=== PATIENT | male | born 1945 | race Hispanic/Latino ===

== ENCOUNTER 2018-09-25 18:48 | Inpatient (IN) | payer MEDICARE ==
[2018-09-25 20:12] LABS: #Monocytes 1.4 thou/uL (0.11-0.59); #Neutrophils 10.7 thou/uL (1.40-6.50); %Basophils 0.2 % (0.0-1.0); %Eosinophils 0.1 % (0.0-10.0); %Lymphocytes 7.4 % (21.0-51.0); %Monocytes 10.8 % (0.0-10.0); %Neutrophils 81.6 % (42.0-75.0); Hemoglobin 12.7 g/dL (14.0-18.0); Mean Corpuscular HGB CONC 33.7 g/dL (32.0-36.0); Mean Corpuscular Hemoglobin 33.7 pg (27.0-31.0); Platelet Count 154 thou/uL (130-400); RBC Distribution Width 12.5 % (11.5-14.5); Red Blood Cell (RBC) Count 3.76 mill/uL (4.70-6.10); White Blood Cell (WBC) Count 13.1 thou/uL (4.8-10.8)
[2018-09-25 20:33] LABS: ALT (SGPT) 13 U/L (8-55); AST (SGOT) 18 U/L (5-34); Albumin 3.7 g/dL (3.4-4.8); Alkaline Phosphatase 80 U/L (40-150); Anion Gap 18 mmol/L (10-20); BUN (Urea Nitrogen) 43 mg/dL (8.4-25.7); Bilirubin, Total 0.8 mg/dL (0.2-1.2); Calc. Creatinine Clearance 0 mL/min (70-130); Calcium 10.3 mg/dL (7.8-10.44); Carbon Dioxide 21 mmol/L (23-31); Chloride 97 mmol/L (98-107); Estimated GFR-MDRD 7; Globulin 4.7 g/dL (2.4-3.5); Potassium 4.6 mmol/L (3.5-5.1); Protein, Total 8.4 g/dL (5.8-8.1); Sodium 131 mmol/L (136-145)
[2018-09-25 20:37] LABS: Glucose 58 mg/dL (83-110)
[2018-09-25] MEDS ORDERED: Acetaminophen 500 MG TAB ONE (20:53)
--- NOTE | 2018-09-25 20:53 | RAD ---
Portable frontal chest radiograph: 09/25/2018 COMPARISON: 04/21/2018 HISTORY: Cough FINDINGS: Stable prominence of the cardiac silhouette. Diffuse mild increased linear interstitial den sity noted, a stable finding. There is subtle hazy increased density in the left base lateral to the left heart border, new. This could signify infectious pneumonitis in the proper clinical setting. This could also be associated with volume loss. IMPRESSION: Hazy increased density in the left base lateral to the left heart border may signify infe ctious pneumonitis in the proper clinical setting. Recommend follow-up imaging following treatment to document resolution.
[2018-09-25 20:54] LABS: CKMB 2.3 ng/mL (0-6.6)
[2018-09-25] MEDS ORDERED: Dextrose 50% Abboject 50 ML SYRINGE ONE (20:55)
[2018-09-25] MEDS ORDERED: HYDROcodone/Acetaminophen 5/325 mg Tablet ONE (21:29)
[2018-09-25] MEDS ORDERED: Piperacillin/Tazobactam 3.375 GM VIAL ONE ×2 (21:33→22:02)
[2018-09-25] MEDS ORDERED: Calcium Carbonate 500 MG ChewTAB PO PRN (21:37)
[2018-09-25] MEDS ORDERED: Nitroglycerin 0.4 MG TAB (25 Tab Bottle) SL PRN (21:37)
[2018-09-25] MEDS ORDERED: cloNIDine 0.1 MG TAB PO PRN (21:37)
[2018-09-25] MEDS ORDERED: Dextrose 50% Abboject 50 ML SYRINGE SLOW IVP PRN (21:37)
[2018-09-25] MEDS ORDERED: hydrALAZINE 20 MG/ML VIAL SLOW IVP PRN (21:37)
[2018-09-25] MEDS ORDERED: Dextrose 5% in Water 1,000 ML IV PRN (21:37)
[2018-09-25] MEDS ORDERED: Ondansetron ODT 4 MG TAB PO PRN (21:37)
[2018-09-25] MEDS ORDERED: Diabetic Tussin 200 MG/10 ML UDCUP PO PRN (21:37)
[2018-09-25] MEDS ORDERED: HumaLOG 300 UNITS/3 ML VIAL SC PRN ×2 (21:37)
[2018-09-25] MEDS ORDERED: Benzonatate 100 MG CAP PO PRN (21:37)
[2018-09-25] MEDS ORDERED: Ondansetron PF 4 MG/2 ML Vial IVP PRN (21:37)
[2018-09-25] MEDS ORDERED: Senokot S 8.6-50 MG TAB PO PRN ×2 (21:37)
[2018-09-25] MEDS ORDERED: Sodium Chloride 0.9% 1,000 ML IV SCH (21:45)
[2018-09-26 00:18] LABS: Troponin I 0.066 ng/mL (< 0.028)
[2018-09-26] MEDS ORDERED: Lidocaine 5% Patch TD SCH (01:30)
[2018-09-26] MEDS ORDERED: Meclizine HCl 25 MG TAB PO PRN (01:48)
[2018-09-26] MEDS: Acetaminophen 325 MG TAB PO PRN ×3 (01:59→15:34)
[2018-09-26 02:14] VITALS: BMI 42.3
--- NOTE | 2018-09-26 02:29 | HP ---
The patient was seen prior to midnight. PRIMARY CARE PHYSICIAN: Missy Frazier MD. CHIEF COMPLAINT: Weakness and fall. HISTORY OF PRESENTING ILLNESS: Mr. Cao is a 73-year-old male with past medical history of end-stage renal disease, on dialysis Thursday, Thursday, and Thursday, as well as history of diabetes, hypertension, dyslipidemia, who presented to the ER with the above-mentioned complaint. History is mainly obtained by the patient himself who is somewhat of a poor historian. The history is supplemented by his family members including his son at bedside. According to Mr. Cao, he has been feeling unwell for the last few days. He has been getting more and more weak and has noticed poor appetite. Denies any fever or chills, but has been having some cough. He uses a wheelchair at home, but it has been getting harder for him to move around. Today, he fell trying to get out of the wheelchair to bed. He has also missed dialysis today because of extreme weakness. He also notices that he has not been able to make it to the bathroom in time because of the weakness and is urinating on himself. Denies any painful micturition or any blood in the urine. He denies any nausea, vomiting, abdominal pain, or diarrhea. He also has noticed some increased swelling in his legs. Upon presentation to the emergency room, he was febrile with a temperature of 103.1 and blood pressure of 142/66. He was tachycardic with a heart rate of 102. He was given initial workup, which revealed leukocytosis with WBCs of 13.1 with 81% neutrophils. His serum chemistries show worsening renal function with BUN of 43, creatinine of 7.65, and his blood sugar was low at 58. His lactic acid was normal. His liver enzymes normal. His chest x-ray was consistent with left lower lobe pneumonia. He was given broad-spectrum IV antibiotics in the emergency room and is now being admitted to medical floor for pneumonia. At the time of my evaluation, the patient is comfortably sitting in bed and eating dinner. He is in no acute distress. His most recent vital signs include blood pressure of 115/64 with a pulse of 95, saturating 98% on 2 L nasal cannula. PAST MEDICAL HISTORY: 1. Renal disease, on hemodialysis Thursday, Thursday, Thursday. The patient follows up with Dr. Hernandez. 2. Hypertension. 3. Dyslipidemia. 4. Diabetes mellitus. PAST SURGICAL HISTORY: Knee surgery and ankle surgery. PSYCHIATRIC HISTORY: No anxiety. No depression. SOCIAL HISTORY: He lives at home and there is no history of tobacco, alcohol, or drug abuse. FAMILY HISTORY: No family history of premature coronary artery disease, stroke, or cancer. ALLERGIES: NO KNOWN MEDICATION ALLERGIES. CURRENT MEDICATIONS: Listed as following; 1. Amlodipine 10 mg daily. 2. Aspirin 325 mg daily. 3. Crestor 20 mg daily. 4. Hydrocodone with Tylenol as needed. 5. Imdur 30 mg daily. 6. Lisinopril 10 mg daily. 7. Allopurinol 100 mg daily. 8. Levothyroxine 125 mcg daily. 9. Glimepiride 4 mg in the morning and one tablet at night. REVIEW OF SYSTEMS: A 14-point review of system is done, it is negative except for those mentioned in the history and physical. CODE STATUS: Do not resuscitate or intubate. Discussed with the patient. LABORATORY EXAMINATION: CBC shows WBCs at 13.1 with 81% neutrophils, hemoglobin 12.7, cell count normal. Serum chemistry shows sodium of 131, chloride 97, bicarb 21, BUN 43, creatinine 7.65, blood sugar 58 with repeat blood sugar of 123. Troponin 0.052, then 0.066 with normal CK-MB. Chest x-ray by my review shows left lower lobe infiltrates. PHYSICAL EXAMINATION: VITAL SIGNS: Most recent vital signs; temperature 99.5, pulse of 85, respirations 14, saturating 98% on 2 L nasal cannula, blood pressure 101/56. GENERAL: He is diaphoretic, but in no acute distress. He is awake, alert, and oriented x3. HEENT: Mucous membrane is slightly dry. No oropharyngeal exudate or erythema. Head is normocephalic and atraumatic. Pupils are equal and reactive to light and accommodation. Extraocular movement intact. NECK: Supple without any lymphadenopathy, JVD, or bruit. CHEST: Evaluation shows some diffuse coarse rhonchi bilaterally without any wheezing or crackles. HEART: Rate and rhythm is regular without any murmurs, rubs, or gallops. ABDOMEN: Soft, nontender, nondistended with positive bowel sounds. EXTREMITIES: Free of any cyanosis, clubbing, or edema. NEUROLOGICAL: Examination is nonfocal. SKIN: Free of any rashes or bruises. Feels warm and dry to touch. PSYCHIATRIC: Normal affect. IMPRESSION AND PLAN: 1. Healthcare-associated pneumonia. The patient is a dialysis patient and at high risk for resistant organisms. We will cover him for Pseudomonas and MRSA among others. He will be started on vancomycin with pharmacy to dose and monitor based on his renal function as well as cefepime. We will start him on gentle IV fluids and monitor the results of his blood cultures that were obtained in the emergency room. Currently, he is hemodynamically stable without evidence of sepsis. 2. Elevated cardiac enzymes, most likely demand ischemia from infection. We will continue to trend serial cardiac enzymes. 3. Acute on chronic kidney insufficiency. The patient has missed dialysis today. We will consult his parking enforcement specialist, Dr. Hernandez for dialysis in the morning. Avoid any nephrotoxic medications. We will hold the lisinopril for now. 4. End-stage renal disease, on hemodialysis. We will continue maintenance hemodialysis in the hospital. 5. History of hypertension. Resume home medications with parameters to hold for low blood pressure. We will restart amlodipine as well as Imdur, but hold the lisinopril given that he has acute renal insufficiency on top of chronic kidney disease for now. 6. Diabetes mellitus. His blood sugar was on the lower side upon presentation, probably because of the infection. We will hold his oral hypoglycemics for now and treat with insulin sliding scale with Accu-Cheks a.c. and at bedtime. 7. Deep venous thrombosis and gastrointestinal prophylaxis will be added. 8. Code status is do not intubate or resuscitate. Discussed with the patient in detail. DISPOSITION: Mr. Cao is currently being admitted to medical floor for healthcare-associated pneumonia. He is hemodynamically stable. Estimated length of stay at this time is at least 2 to 3 midnights. Further management will depend upon his clinical course. Job ID: [id number]
[2018-09-26 02:38] LABS: #Lymphocytes 1.3 thou/uL (1.20-3.40); #Monocytes 1.5 thou/uL (0.11-0.59); #Neutrophils 8.8 thou/uL (1.40-6.50); %Basophils 0.4 % (0.0-1.0); %Eosinophils 0.1 % (0.0-10.0); %Lymphocytes 11.3 % (21.0-51.0); %Monocytes 12.9 % (0.0-10.0); %Neutrophils 75.3 % (42.0-75.0); Hemoglobin 11.8 g/dL (14.0-18.0); Mean Corpuscular HGB CONC 33.1 g/dL (32.0-36.0); Mean Corpuscular Hemoglobin 33.3 pg (27.0-31.0); Platelet Count 136 thou/uL (130-400); RBC Distribution Width 12.6 % (11.5-14.5); Red Blood Cell (RBC) Count 3.56 mill/uL (4.70-6.10); White Blood Cell (WBC) Count 11.7 thou/uL (4.8-10.8)
[2018-09-26 02:49] LABS: Bilirubin Negative (Negative); Blood, Urine Moderate (Negative); Clarity CLEAR (Clear); Glucose, Urine (Dipstick) 250 mg/dL (Negative); Leukocyte Negative (Negative); Nitrite Negative (Negative); Protein, Urine (Dipstick) 100 mg/dL (Neg-Trace); Specific Gravity, Urine 1.011 (1.002-1.036); pH, Urine 7.5 (5.0-9.0)
[2018-09-26 02:51] LABS: Bacteria/HPF None Seen HPF (None Seen); Hyaline Casts/LPF 0-3 HYALINE CAST LPF (0-3 Hyaline); Pathc Cast-AUWi Flag 0.27 (0-2.49); Squamous Epithelial 0-3 HPF (0-3); WBC/HPF 0-3 HPF (0-3)
[2018-09-26 02:52] LABS: Urine Culture Reflex No No
[2018-09-26 03:01] LABS: Chloride 99 mmol/L (98-107); Potassium 4.4 mmol/L (3.5-5.1); Sodium 131 mmol/L (136-145)
[2018-09-26 03:02] LABS: Glucose 119 mg/dL (83-110)
[2018-09-26 03:02] LABS: Troponin I 0.052 ng/mL (< 0.028)
[2018-09-26 03:03] LABS: Anion Gap 18 mmol/L (10-20); Carbon Dioxide 18 mmol/L (23-31)
[2018-09-26 03:05] LABS: Calc. Creatinine Clearance 14 mL/min (70-130); Estimated GFR-MDRD 7
[2018-09-26 03:06] LABS: BUN (Urea Nitrogen) 49 mg/dL (8.4-25.7)
[2018-09-26] MEDS ORDERED: Vancomycin Sliding Scale 1 EACH FS ONE (03:45)
[2018-09-26] MEDS ORDERED: HOLD VANCOMYCIN FOR LEVEL >20 FS SCH (03:45)
[2018-09-26] MEDS ORDERED: Vancomycin HCl 750 MG in Sodium Chloride 0.9% 250 ML 250 ML IVPB SCH (03:45)
[2018-09-26] MEDS ORDERED: Vancomycin HCl 1 GM in Premix Bag 1 BAG IVPB SCH (03:45)
[2018-09-26] MEDS ORDERED: Vancomycin HCl 1.25 GM in Sodium Chloride 0.9% 250 ML 250 ML IVPB SCH (03:45)
[2018-09-26] MEDS ORDERED: Vancomycin HCl 1.5 GM in Sodium Chloride 0.9% 250 ML 300 ML IVPB SCH (03:45)
[2018-09-26] MEDS: Levothyroxine 175 MCG TAB PO SCH (06:19)
[2018-09-26] MEDS: Allopurinol 100 MG TAB PO SCH (08:27)
[2018-09-26] MEDS: guaiFENesin ER 600 MG TAB PO SCH ×2 (08:27→20:19)
[2018-09-26] MEDS: Famotidine 20 MG TAB PO SCH (08:27)
[2018-09-26] MEDS: Amlodipine 10 MG TAB PO SCH (08:27)
[2018-09-26] MEDS: Glimepiride 4 MG TAB PO SCH ×3 (08:28→17:48)
[2018-09-26] MEDS: Lisinopril 10 MG TAB PO SCH (08:28)
[2018-09-26] MEDS: Heparin 5,000 UNITS/ML VIAL SC SCH ×2 (08:28→20:20)
[2018-09-26] MEDS: Aspirin 325 MG TAB PO SCH (08:28)
[2018-09-26] MEDS ORDERED: VANCOMYCIN HCL IVPB SCH (09:00)
[2018-09-26] MEDS ORDERED: Amlodipine 10 MG TAB PO SCH (09:00)
[2018-09-26] MEDS ORDERED: Cefepime 2 GM in Sodium Chloride 0.9% 100 ML IVPB SCH (09:00)
--- NOTE | 2018-09-26 09:42 | PDOC.PN ---
- Subjective Encounter Start Date: 09/26/18 Encounter Start Time: 09:55 Patient seen and examined. No new complaints. No overnight events pt has left shoulder pain for 2 week - Objective Resuscitation Status - Order Detail: 09/25/18 23:06 Resuscitation Status Routine Resuscitation Status: DNAR: NO Resuscitation Discussed with: discussed with pt in detail MAR Reviewed: Yes Vital Signs & Weight: Vital Signs (12 hours) Temp Pulse Resp BP BP BP Pulse Ox 09/26/18 08:28 153/85 H 09/26/18 08:27 89 09/26/18 08:00 98.6 F 89 22 H 153/85 H 99 09/26/18 04:07 98.2 F 89 18 153/87 H 96 09/26/18 02:23 76 16 99 09/26/18 00:13 98 09/26/18 00:12 82 14 98 09/25/18 23:45 92 L 09/25/18 23:20 99.5 F 85 24 H 101/56 L 92 L Weight Weight 262 lb I&O: 09/25/18 09/26/18 09/27/18 06:59 06:59 06:59 Intake Total 500 Output Total 200 Balance 300 Result Diagrams: 09/26/18 02:21 09/26/18 02:22 Additional Labs: Accuchecks 09/26/18 09/26/18 09/25/18 04:05 00:31 21:41 POC Glucose 100 123 H 109 Radiology Reviewed by me: Yes EKG Reviewed by me: Yes Phys Exam - Physical Examination Constitutional: NAD HEENT: PERRLA, moist MMs, sclera anicteric Neck: no JVD, supple Respiratory: no wheezing, no rhonchi left base rales+ Cardiovascular: RRR, no significant murmur, no rub Gastrointestinal: soft, non-tender, no distention, positive bowel sounds morbid obesity+ Musculoskeletal: no edema, pulses present Neurological: non-focal, normal sensation Lymphatic: no nodes Psychiatric: normal affect, A&O x 3 Skin: no rash, normal turgor Dx/Plan (1) Left lower lobe pneumonia Code(s): J18.1 - LOBAR PNEUMONIA, UNSPECIFIED ORGANISM Status: Acute (2) Hypoglycemia due to type 2 diabetes mellitus Code(s): E11.649 - TYPE 2 DIABETES MELLITUS WITH HYPOGLYCEMIA WITHOUT COMA Status: Acute (3) Type [address] elevation Code(s): I21.A1 - MYOCARDIAL INFARCTION TYPE 2 Status: Acute (4) Diabetes type 2, controlled Code(s): E11.9 - TYPE 2 DIABETES MELLITUS WITHOUT COMPLICATIONS Status: Chronic (5) Dyslipidemia Code(s): E78.5 - HYPERLIPIDEMIA, UNSPECIFIED Status: Chronic (6) ESRD (end stage renal disease) on dialysis Code(s): N18.6 - END STAGE RENAL DISEASE; Z99.2 - DEPENDENCE ON RENAL DIALYSIS Status: Chronic (7) Gout Code(s): M10.9 - GOUT, UNSPECIFIED Status: Chronic (8) Hypertension Code(s): I10 - ESSENTIAL (PRIMARY) HYPERTENSION Status: Chronic (9) Hypothyroidism Code(s): E03.9 - HYPOTHYROIDISM, UNSPECIFIED Status: Chronic (10) Macrocytic anemia Code(s): D53.9 - NUTRITIONAL ANEMIA, UNSPECIFIED Status: Chronic (11) Morbid obesity with BMI of 40.0-44.9, adult Code(s): E66.01 - MORBID (SEVERE) OBESITY DUE TO EXCESS CALORIES; Z68.41 - BODY MASS INDEX (BMI) 40.0-44.9, ADULT Status: Chronic - Plan cont current plan of care, continue antibiotics, respiratory therapy * DC IVF * continue cefepime and vancomycin * tomorrow HD * medication reviewed as below * symptomatic treatment * get left shoulder xray * pain control * PT/OT * follow culture result. Review of Systems - Review of Systems ENT: negative: Ear Pain, Ear Discharge, Nose Pain, Nose Discharge, Nose Congestion, Mouth Pain, Mouth Swelling, Throat Pain, Throat Swelling, Other Respiratory: negative: Cough, Dry, Shortness of Breath, Hemoptysis, SOB with Excertion, Pleuritic Pain, Sputum, Wheezing Cardiovascular: negative: chest pain, palpitations, orthopnea, paroxysmal nocturnal dyspnea, edema, light headedness, other Gastrointestinal: negative: Nausea, Vomiting, Abdominal Pain, Diarrhea, Constipation, Melena, Hematochezia, Other Genitourinary: negative: Dysuria, Frequency, Incontinence, Hematuria, Retention , Other Musculoskeletal: Shoulder Pain. negative: Neck Pain, Arm Pain, Back Pain, Hand Pain, Leg Pain, Foot Pain, Other - Medications/Allergies Allergies/Adverse Reactions: Allergies Allergy/AdvReac Type Severity Reaction Status Date / Time No Known Drug Allergies Allergy Verified 09/25/18 21:43 Medications: Current Medications Acetaminophen (Tylenol) 650 mg PO Q4H PRN PRN Reason: Headache/Fever/Mild Pain (1-3) Last Admin: 09/26/18 01:59 Dose: 650 mg Albuterol/Ipratropium (Duoneb) 3 ml NEB [id number] [facility] Last Admin: 09/26/18 02:23 Dose: 3 ml Allopurinol (Zyloprim) 100 mg PO DAILY [facility] Last Admin: 09/26/18 08:27 Dose: 100 mg Amlodipine Besylate (Norvasc) 10 mg PO DAILY [facility] Last Admin: 09/26/18 08:27 Dose: 10 mg Aspirin (Aspirin) 325 mg PO DAILY [facility] Last Admin: 09/26/18 08:28 Dose: 325 mg Benzonatate (Tessalon) 100 mg PO Q6H PRN PRN Reason: Cough Calcium Carbonate (Tums) 1,000 mg PO Q4H PRN PRN Reason: Heartburn or Indigestion Clonidine (Catapres) 0.1 mg PO Q4H PRN PRN Reason: SBP > 160____ Dextrose/Water (Dextrose 50%) 25 gm SLOW IVP PRN PRN PRN Reason: Hypoglycemia Famotidine (Pepcid) 20 mg PO DAILY [facility] Last Admin: 09/26/18 08:27 Dose: 20 mg Glimepiride (Amaryl) 4 mg PO BID-[facility] Last Admin: 09/26/18 08:28 Dose: 4 mg Glucagon (Glucagon) 1 mg IM PRN PRN PRN Reason: Hypoglycemia Guaifenesin (Robitussin Sf) 200 mg PO Q4H PRN PRN Reason: Cough Guaifenesin (Mucinex) 1,200 mg PO Q12HR [facility] Last Admin: 09/26/18 08:27 Dose: 1,200 mg Heparin Sodium (Porcine) (Heparin) 5,000 units SC BID [facility] Last Admin: 09/26/18 08:28 Dose: 5,000 units Hydralazine HCl (Apresoline) 10 mg SLOW IVP Q4H PRN PRN Reason: SBP > 180 and HR < 70 Dextrose/Water (D5w) 1,000 mls @ 0 mls/hr IV .Q0M PRN PRN Reason: Hypoglycemia Vancomycin HCl 1.5 gm/ Sodium (Chloride) 300 mls @ 200 mls/hr IVPB WILLCALL [facility] Vancomycin HCl 1.25 gm/ Sodium (Chloride) 250 mls @ 166.667 mls/hr IVPB WILLCALL [facility] Vancomycin HCl 1 gm/ Device 200 mls @ 200 mls/hr IVPB [facility]CALL [facility] Vancomycin HCl 750 mg/ Sodium (Chloride) 250 mls @ 250 mls/hr IVPB [facility]CALL [facility] Cefepime HCl 0.5 gm/Miscellaneous Medication 1 each/ Sodium Chloride 100 mls @ 200 mls/hr IVPB 0900 [facility] Insulin Human Lispro (Humalog) 0 units SC .MODERATE SLIDING SC PRN PRN Reason: Moderate Correctional Scale Insulin Human Lispro (Humalog) 0 units SC .BEDTIME SLIDING SC PRN PRN Reason: Bedtime Correctional Scale Isosorbide Mononitrate (Imdur Er) 30 mg PO DAILY [facility] Last Admin: 09/26/18 08:27 Dose: 30 mg Levothyroxine Sodium (Synthroid) 175 mcg PO 0600 [facility] Last Admin: 09/26/18 06:19 Dose: 175 mcg Lidocaine (Lidoderm 5% Patch) 1 patch TD Q24HR [facility] Last Admin: 09/26/18 01:50 Dose: 1 patch Lisinopril (Zestril) 10 mg PO QAM [facility] Last Admin: 09/26/18 08:28 Dose: 10 mg Meclizine HCl (Antivert) 25 mg PO DAILY PRN PRN Reason: Dizziness Miscellaneous Medication (Lidocaine Patch Removal) 1 each TOP 1330 [facility] Nitroglycerin (Nitrostat) 0.4 mg SL Q5MIN PRN PRN Reason: Chest Pain Hold Vancomycin For (Level >20) 0 each FS .AT DIALYSIS [facility] Ondansetron HCl (Zofran Odt) 4 mg PO Q6H PRN PRN Reason: Nausea/Vomiting Ondansetron HCl (Zofran) 4 mg IVP Q6H PRN PRN Reason: Nausea/Vomiting Rosuvastatin Calcium (Crestor) 20 mg PO HS [facility] Senna/Docusate Sodium (Senokot S) 2 tab PO BIDPRN PRN PRN Reason: Constipation Sodium Chloride (Flush - Normal Saline) 10 ml IVF Q12HR [facility] Last Admin: 09/26/18 08:29 Dose: 10 ml Sodium Chloride (Flush - Normal Saline) 10 ml IVF PRN PRN PRN Reason: Saline Flush
--- NOTE | 2018-09-26 09:50 | RAD ---
EXAM: XR Shoulder Lt 3 View STANDARD PROVIDED CLINICAL HISTORY: Pain FINDINGS: There is no evidence for fracture or other acute osseous abnormality. Alignment appears anatomic. Cookie nt spaces appear preserved. Left midlung zone parenchymal opacity appears similar to chest radiograph of 09/25/2018. IMPRESSION: No evidence for an acute osseous abnormality. If there is persistent clinical concern, conservative m anagement and follow-up imaging advised.
[2018-09-26] MEDS: Cefepime 0.5 GM, Admixture Fee 1 EACH in Sodium Chloride 0.9% 100 ML IVPB SCH (11:16)
[2018-09-26] MEDS: Lidocaine Patch Removal 1 EACH TOP SCH (13:41)
[2018-09-26] MEDS: Lidocaine 5% Patch TD SCH (13:41)
--- NOTE | 2018-09-26 17:21 | CON ---
DATE OF CONSULTATION: HISTORY OF PRESENT ILLNESS: Mr. Cao is a 73-year-old male with ESRD and admitted for generalized weakness. During the initial evaluation, he was found to have pneumonia. We are being consulted for his maintenance hemodialysis. Mr. Cao dialysis is on Thursday, Thursday, and Thursday. He did dialyze Thursday. This morning, he is still feeling tired. He does complain of occasional cough. REVIEW OF SYSTEMS: No chest pain. No shortness of breath. No nausea. No vomiting. He denies any fever. Positive for generalized weakness. Decreased appetite. No gross hematuria. No dysuria. No urinary frequency. No productive cough. No hematochezia. No melena. No hematemesis. No abdominal pain. Occasional joint pains. Positive for chronic low back pain. No headache. No sore throat. PAST MEDICAL HISTORY: Includes the following; ESRD, currently on maintenance hemodialysis Thursday, Thursday, and Thursday; type 2 diabetes mellitus; hypertension; dyslipidemia; DJD, hyperlipidemia and history of gout as well as hypothyroidism. PAST SURGICAL HISTORY: Includes status post knee surgery, status post ankle surgery, status post AV fistula placement, status post cuffed hemodialysis catheter placement. SOCIAL HISTORY: The patient lives alone in [place]. He has several children. He denies any current active smoking or alcohol intake, but in the past, he smoked for several years. No IV drug abuse. Status post blood transfusion. Sedentary lifestyle. Education, high school. ALLERGIES: NO KNOWN DRUG ALLERGIES. TRAUMA: None. IMMUNIZATIONS: Up-to-date. HOSPITALIZATIONS: Please see past medical history. FAMILY HISTORY: No family history of ESRD. MEDICATIONS: Home medications include the following; 1. Amlodipine 10 mg daily. 2. Aspirin 325 mg once a day. 3. Crestor 20 mg at bedtime. 4. Hydrocodone p.r.n. 5. Imdur 30 mg daily. 6. Allopurinol 100 mg daily. 7. Levothyroxine 125 mcg daily. 8. Glimepiride 4 mg b.i.d. Current hospital medications include; 1. Cefepime 1 gram IV daily. 2. Pepcid 20 mg daily. 3. Humalog sliding scale. 4. Zestril 10 mg tablet once a day. PHYSICAL EXAMINATION: VITAL SIGNS: Blood pressure is 153/85, heart rate 89, respiratory rate 22, temperature 98.6, and pulse ox 99% on room air. GENERAL: Awake, alert, comfortable, not in distress. Morbidly obese. SKIN: Adequate turgor. HEENT: Pinkish conjunctivae. Anicteric sclerae. NECK: No neck mass. No carotid bruits. No JVD. CHEST: No deformities. LUNGS: Decreased breath sounds. HEART: Normal sinus rhythm. No murmurs. No gallops. No rubs. ABDOMEN: Globular, soft, and nontender. No masses. EXTREMITIES: No edema. No deformities. NEUROLOGICAL: Awake and oriented to 3 spheres. Moving all extremities. No tremors. No asterixis. No ataxia. LABORATORY DATA: laboratories of September 26, 2018; white count 11.7, hemoglobin 11.8. Sodium 131, potassium 4.4, chloride 99, carbon dioxide 18, BUN 49, creatinine 7.98, glucose 119, and calcium 10. Troponin I 0.052. ASSESSMENT AND PLAN: 1. End-stage renal disease, stable. No indication for any emergent hemodialysis. I have placed this patient on his regular Thursday, Thursday, and Thursday hemodialysis regimen. Review of the last Kt/V suggest this patient is adequately dialyzed with the current dialysis regimen. He is quite compliant with this dialysis regimen. This patient is not interested in pursuing any renal transplantation. 2. Pneumonia, currently on empiric IV antibiotics. 3. Hypertension. Continue current BP medications. 4. Degenerative joint disease, supportive care. We will recheck PTH, phosphorus, basic metabolic panel, and CBC in a.m. Job ID: [id number] MTDD
[2018-09-26] MEDS: HYDROcodone/Acetaminophen 5/325 mg Tablet PO PRN (20:18)
[2018-09-26] MEDS: Rosuvastatin 20 MG TAB PO SCH (20:19)
[2018-09-26] MEDS ORDERED: Acetaminophen 325 MG TAB PO SCH (22:30)
[2018-09-27] MEDS ORDERED: Clopidogrel Bisulfate 75 MG TAB ONE (05:38)
[2018-09-27] MEDS: Levothyroxine 175 MCG TAB PO SCH (05:43)
[2018-09-27] MEDS: Acetaminophen 325 MG TAB PO PRN ×2 (05:43→22:25)
[2018-09-27 06:26] LABS: #Eosinphils 0.1 thou/uL (0.0-0.7); #Lymphocytes 1.1 thou/uL (1.20-3.40); #Monocytes 1.2 thou/uL (0.11-0.59); #Neutrophils 7.3 thou/uL (1.40-6.50); %Basophils 0.2 % (0.0-1.0); %Eosinophils 0.6 % (0.0-10.0); %Lymphocytes 11.2 % (21.0-51.0); %Monocytes 11.9 % (0.0-10.0); %Neutrophils 76.1 % (42.0-75.0); Hemoglobin 11.4 g/dL (14.0-18.0); Mean Corpuscular HGB CONC 33.4 g/dL (32.0-36.0); Mean Corpuscular Hemoglobin 33.6 pg (27.0-31.0); Mean Platelet Volume 8.7 fL (7.4-10.4); Platelet Count 141 thou/uL (130-400); RBC Distribution Width 12.8 % (11.5-14.5); Red Blood Cell (RBC) Count 3.38 mill/uL (4.70-6.10); White Blood Cell (WBC) Count 9.6 thou/uL (4.8-10.8)
[2018-09-27 06:52] LABS: Anion Gap 19 mmol/L (10-20); BUN (Urea Nitrogen) 63 mg/dL (8.4-25.7); Calc. Creatinine Clearance 13 mL/min (70-130); Calcium 9.5 mg/dL (7.8-10.44); Carbon Dioxide 16 mmol/L (23-31); Chloride 99 mmol/L (98-107); Estimated GFR-MDRD 6; Glucose 158 mg/dL (83-110); Phosphorus 6.4 mg/dL (2.3-4.7); Potassium 4.6 mmol/L (3.5-5.1); Sodium 129 mmol/L (136-145)
[2018-09-27] MEDS: Heparin 5,000 UNITS/ML VIAL SC SCH ×2 (07:53→22:25)
[2018-09-27] MEDS: Allopurinol 100 MG TAB PO SCH (07:53)
[2018-09-27] MEDS: Aspirin 325 MG TAB PO SCH (07:53)
[2018-09-27] MEDS: Glimepiride 4 MG TAB PO SCH ×2 (07:54→16:42)
[2018-09-27] MEDS: Famotidine 20 MG TAB PO SCH (07:54)
[2018-09-27] MEDS: Amlodipine 10 MG TAB PO SCH (07:54)
[2018-09-27] MEDS: guaiFENesin ER 600 MG TAB PO SCH ×2 (07:54→22:25)
[2018-09-27] MEDS: HYDROcodone/Acetaminophen 5/325 mg Tablet PO PRN ×3 (08:00→23:10)
[2018-09-27 09:00] LABS: Vancomycin, Random 9.1 ug/mL (See Comment)
[2018-09-27] MEDS ORDERED: Heparin 10,000 UNITS/ 10 ML VIAL ONE (09:00)
--- NOTE | 2018-09-27 10:34 | PRG ---
DATE OF SERVICE: 09/27/2018 SUBJECTIVE: Mr. Cao is a 73-year-old male with ESRD and on maintenance hemodialysis. He was admitted with a complaint of generalized malaise. He was found to have a pneumonia. He has currently been started on IV antibiotics-currently cefepime. This morning, he is still feeling tired. I have scheduled him for his regular dialysis this afternoon. No complaints of chest pain or shortness of breath. OBJECTIVE: VITAL SIGNS: Blood pressure 129/77, heart rate 87, respiratory rate 20, temperature 98.4, and pulse ox 98%. GENERAL: Awake, alert, comfortable, not in distress. The patient is obese. SKIN: Adequate turgor. HEENT: He has pinkish conjunctivae. Anicteric sclerae. No neck mass. No carotid bruits. No JVD. CHEST: No deformities. LUNGS: Clear breath sounds. No wheezing. No crackles. HEART: Normal sinus rhythm. No murmur. No gallops. No rubs. ABDOMEN: Globular, soft, nontender. No masses. EXTREMITIES: No edema. No deformities. MEDICATIONS: Medications of Sep 27 2018, reviewed. LABORATORY DATA: Laboratories of September 27, 2018, white count 9.6, hemoglobin 11.4. Sodium 129, potassium 4.6, chloride 99, carbon dioxide 16, BUN 63, creatinine 8.59, glucose 158, calcium 9.5, phosphorus 6.4. PTH is 549. ASSESSMENT AND PLAN: 1. End-stage renal disease, stable. We will continue current Thursday, Thursday , and Thursday hemodialysis. Fluid removal as tolerated. 2. Pneumonia. Currently on IV antibiotics. 3. Hyperphosphatemia. Start Renvela 800 mg one tablet t.i.d. 4. Elevated PTH-we will start calcitriol 0.25 mcg tablet daily. Job ID: [id number] [facility]
--- NOTE | 2018-09-27 11:41 | PDOC.PN ---
- Subjective Encounter Start Date: 09/27/18 Encounter Start Time: 09:20 -: old records requested/rev Patient seen and examined. No new complaints. No overnight events - Objective Resuscitation Status - Order Detail: 09/25/18 23:06 Resuscitation Status Routine Resuscitation Status: DNAR: NO Resuscitation Discussed with: discussed with pt in detail MAR Reviewed: Yes Vital Signs & Weight: Vital Signs (12 hours) Temp Pulse Resp BP Pulse Ox 09/27/18 11:36 98.3 F 75 20 113/65 100 09/27/18 11:35 97 20 95 09/27/18 08:13 103 H 18 95 09/27/18 08:00 98 09/27/18 07:54 103 H 09/27/18 07:45 98.4 F 87 20 129/77 98 09/27/18 03:00 99.9 F H 103 H 23 H 126/67 95 09/27/18 02:08 91 18 96 09/27/18 00:00 99.4 F 94 22 H 115/68 97 Weight Weight 262 lb I&O: 09/26/18 09/27/18 09/28/18 06:59 06:59 06:59 Intake Total 500 480 240 Output Total 200 Balance 300 480 240 Result Diagrams: 09/27/18 05:21 09/27/18 05:20 Additional Labs: Accuchecks 09/27/18 09/26/18 09/26/18 04:48 20:27 17:00 POC Glucose 154 H 161 H 116 H 09/26/18 11:23 POC Glucose 97 Phys Exam - Physical Examination Constitutional: NAD HEENT: PERRLA, moist MMs, sclera anicteric Neck: no JVD, supple Respiratory: no wheezing, no rhonchi left base rales Cardiovascular: RRR, no significant murmur, no rub Gastrointestinal: soft, non-tender, no distention, positive bowel sounds Musculoskeletal: no edema, pulses present Neurological: non-focal, normal sensation Lymphatic: no nodes Psychiatric: normal affect, A&O x 3 Skin: no rash, normal turgor Dx/Plan (1) Left lower lobe pneumonia Code(s): J18.1 - LOBAR PNEUMONIA, UNSPECIFIED ORGANISM Status: Acute (2) Hypoglycemia due to type 2 diabetes mellitus Code(s): E11.649 - TYPE 2 DIABETES MELLITUS WITH HYPOGLYCEMIA WITHOUT COMA Status: Acute (3) Type [address] elevation Code(s): I21.A1 - MYOCARDIAL INFARCTION TYPE 2 Status: Acute (4) Diabetes type 2, controlled Code(s): E11.9 - TYPE 2 DIABETES MELLITUS WITHOUT COMPLICATIONS Status: Chronic (5) Dyslipidemia Code(s): E78.5 - HYPERLIPIDEMIA, UNSPECIFIED Status: Chronic (6) ESRD (end stage renal disease) on dialysis Code(s): N18.6 - END STAGE RENAL DISEASE; Z99.2 - DEPENDENCE ON RENAL DIALYSIS Status: Chronic (7) Gout Code(s): M10.9 - GOUT, UNSPECIFIED Status: Chronic (8) Hypertension Code(s): I10 - ESSENTIAL (PRIMARY) HYPERTENSION Status: Chronic (9) Hypothyroidism Code(s): E03.9 - HYPOTHYROIDISM, UNSPECIFIED Status: Chronic (10) Macrocytic anemia Code(s): D53.9 - NUTRITIONAL ANEMIA, UNSPECIFIED Status: Chronic (11) Morbid obesity with BMI of 40.0-44.9, adult Code(s): E66.01 - MORBID (SEVERE) OBESITY DUE TO EXCESS CALORIES; Z68.41 - BODY MASS INDEX (BMI) 40.0-44.9, ADULT Status: Chronic - Plan cont current plan of care, continue antibiotics * medication reviewed as below * symptomatic treatment * continue iv antibiotics * today HD * follow culture * pt is clinically improving. Review of Systems - Review of Systems ENT: negative: Ear Pain, Ear Discharge, Nose Pain, Nose Discharge, Nose Congestion, Mouth Pain, Mouth Swelling, Throat Pain, Throat Swelling, Other Respiratory: negative: Cough, Dry, Shortness of Breath, Hemoptysis, SOB with Excertion, Pleuritic Pain, Sputum, Wheezing Cardiovascular: negative: chest pain, palpitations, orthopnea, paroxysmal nocturnal dyspnea, edema, light headedness, other Gastrointestinal: negative: Nausea, Vomiting, Abdominal Pain, Diarrhea, Constipation, Melena, Hematochezia, Other Genitourinary: negative: Dysuria, Frequency, Incontinence, Hematuria, Retention , Other Musculoskeletal: negative: Neck Pain, Shoulder Pain, Arm Pain, Back Pain, Hand Pain, Leg Pain, Foot Pain, Other Skin: negative: Rash, Lesions, Randall, Bruising, Other - Medications/Allergies Allergies/Adverse Reactions: Allergies Allergy/AdvReac Type Severity Reaction Status Date / Time No Known Drug Allergies Allergy Verified 09/25/18 21:43 Medications: Current Medications Acetaminophen (Tylenol) 650 mg PO Q4H PRN PRN Reason: Headache/Fever/Mild Pain (1-3) Last Admin: 09/27/18 05:43 Dose: 650 mg Hydrocodone Bitart/Acetaminophen ([place] 5/325) 1 tab PO Q6H PRN PRN Reason: Moderate Pain (4-6) Last Admin: 09/27/18 08:00 Dose: 1 tab Albuterol/Ipratropium (Duoneb) 3 ml NEB [id number] [facility] Last Admin: 09/27/18 11:35 Dose: 3 ml Allopurinol (Zyloprim) 100 mg PO DAILY [facility] Last Admin: 09/27/18 07:53 Dose: 100 mg Amlodipine Besylate (Norvasc) 10 mg PO DAILY [facility] Last Admin: 09/27/18 07:54 Dose: 10 mg Aspirin (Aspirin) 325 mg PO DAILY [facility] Last Admin: 09/27/18 07:53 Dose: 325 mg Benzonatate (Tessalon) 100 mg PO Q6H PRN PRN Reason: Cough Calcitriol (Rocaltrol) 0.25 mcg PO DAILY [facility] Calcium Carbonate (Tums) 1,000 mg PO Q4H PRN PRN Reason: Heartburn or Indigestion Clonidine (Catapres) 0.1 mg PO Q4H PRN PRN Reason: SBP > 160____ Dextrose/Water (Dextrose 50%) 25 gm SLOW IVP PRN PRN PRN Reason: Hypoglycemia Famotidine (Pepcid) 20 mg PO DAILY [facility] Last Admin: 09/27/18 07:54 Dose: 20 mg Glimepiride (Amaryl) 4 mg PO BID-[facility] Last Admin: 09/27/18 07:54 Dose: 4 mg Glucagon (Glucagon) 1 mg IM PRN PRN PRN Reason: Hypoglycemia Guaifenesin (Robitussin Sf) 200 mg PO Q4H PRN PRN Reason: Cough Guaifenesin (Mucinex) 1,200 mg PO Q12HR [facility] Last Admin: 09/27/18 07:54 Dose: 1,200 mg Heparin Sodium (Porcine) (Heparin) 5,000 units SC BID [facility] Last Admin: 09/27/18 07:53 Dose: 5,000 units Hydralazine HCl (Apresoline) 10 mg SLOW IVP Q4H PRN PRN Reason: SBP > 180 and HR < 70 Dextrose/Water (D5w) 1,000 mls @ 0 mls/hr IV .Q0M PRN PRN Reason: Hypoglycemia Vancomycin HCl 1.5 gm/ Sodium (Chloride) 300 mls @ 200 mls/hr IVPB [facility] Vancomycin HCl 1.25 gm/ Sodium (Chloride) 250 mls @ 166.667 mls/hr IVPB [facility] Vancomycin HCl 1 gm/ Device 200 mls @ 200 mls/hr IVPB [facility] Vancomycin HCl 750 mg/ Sodium (Chloride) 250 mls @ 250 mls/hr IVPB [facility] Cefepime HCl 0.5 gm/Miscellaneous Medication 1 each/ Sodium Chloride 100 mls @ 200 mls/hr IVPB 0900 [facility] Last Admin: 09/26/18 11:16 Dose: 100 mls Insulin Human Lispro (Humalog) 0 units SC .MODERATE SLIDING SC PRN PRN Reason: Moderate Correctional Scale Insulin Human Lispro (Humalog) 0 units SC .BEDTIME SLIDING SC PRN PRN Reason: Bedtime Correctional Scale Isosorbide Mononitrate (Imdur Er) 30 mg PO DAILY [facility] Last Admin: 09/27/18 07:53 Dose: 30 mg Levothyroxine Sodium (Synthroid) 175 mcg PO 0600 [facility] Last Admin: 09/27/18 05:43 Dose: 175 mcg Lidocaine (Lidoderm 5% Patch) 1 patch TD Q24HR [facility] Last Admin: 09/26/18 13:41 Dose: 1 patch Lisinopril (Zestril) 10 mg PO QAM [facility] Last Admin: 09/26/18 08:28 Dose: 10 mg Meclizine HCl (Antivert) 25 mg PO DAILY PRN PRN Reason: Dizziness Miscellaneous Medication (Lidocaine Patch Removal) 1 each TOP 1330 [facility] Last Admin: 09/26/18 13:41 Dose: 1 each Miscellaneous Medication (Pharmacy To Dose) 1 each IVPB PRN PRN PRN Reason: Pharmacy to dose Nitroglycerin (Nitrostat) 0.4 mg SL Q5MIN PRN PRN Reason: Chest Pain Hold Vancomycin For (Level >20) 0 each FS .AT DIALYSIS [facility] Ondansetron HCl (Zofran Odt) 4 mg PO Q6H PRN PRN Reason: Nausea/Vomiting Ondansetron HCl (Zofran) 4 mg IVP Q6H PRN PRN Reason: Nausea/Vomiting Last Admin: 09/26/18 20:28 Dose: 4 mg Rosuvastatin Calcium (Crestor) 20 mg PO HS [facility] Last Admin: 09/26/18 20:19 Dose: 20 mg Senna/Docusate Sodium (Senokot S) 2 tab PO BIDPRN PRN PRN Reason: Constipation Sevelamer Carbonate (Renvela) 800 mg PO TID-[facility] Sodium Chloride (Flush - Normal Saline) 10 ml IVF Q12HR [facility] Last Admin: 09/27/18 07:55 Dose: 10 ml Sodium Chloride (Flush - Normal Saline) 10 ml IVF PRN PRN PRN Reason: Saline Flush
[2018-09-27] MEDS: Sevelamer Carbonate 800 MG TAB PO SCH ×2 (12:00→16:43)
[2018-09-27] MEDS: Lidocaine Patch Removal 1 EACH TOP SCH (14:15)
[2018-09-27] MEDS: Lidocaine 5% Patch TD SCH (14:15)
[2018-09-27] MEDS: Cefepime 0.5 GM, Admixture Fee 1 EACH in Sodium Chloride 0.9% 100 ML IVPB SCH (14:16)
[2018-09-27 14:47] LABS: HBSAg Index 0.28 S/CO (0-0.99); Hep B Surf Ag Non-Reactive S/CO (NonReactive)
[2018-09-27] MEDS: Rosuvastatin 20 MG TAB PO SCH (22:25)
[2018-09-27] MEDS ORDERED: Methyl Salicylate/Menthol 85 GM TUBE TOP PRN (23:06)
[2018-09-28] MEDS: Levothyroxine 175 MCG TAB PO SCH (06:23)
[2018-09-28] MEDS: Aspirin 325 MG TAB PO SCH (08:50)
[2018-09-28] MEDS: Lisinopril 10 MG TAB PO SCH (08:50)
[2018-09-28] MEDS: Allopurinol 100 MG TAB PO SCH (08:50)
[2018-09-28] MEDS: Calcitriol 0.25 MCG CAP PO SCH (08:50)
[2018-09-28] MEDS: Famotidine 20 MG TAB PO SCH (08:50)
[2018-09-28] MEDS: Cefepime 0.5 GM, Admixture Fee 1 EACH in Sodium Chloride 0.9% 100 ML IVPB SCH (08:50)
[2018-09-28] MEDS: Glimepiride 4 MG TAB PO SCH ×2 (08:51→18:15)
[2018-09-28] MEDS: guaiFENesin ER 600 MG TAB PO SCH ×2 (08:51→21:53)
[2018-09-28] MEDS: Amlodipine 10 MG TAB PO SCH (08:51)
[2018-09-28] MEDS: Heparin 5,000 UNITS/ML VIAL SC SCH ×2 (08:52→21:52)
[2018-09-28] MEDS: HYDROcodone/Acetaminophen 5/325 mg Tablet PO PRN ×3 (08:52→21:51)
[2018-09-28] MEDS: Sevelamer Carbonate 800 MG TAB PO SCH ×3 (08:58→17:52)
--- NOTE | 2018-09-28 10:13 | PRG ---
DATE OF SERVICE: 09/28/2018 SUBJECTIVE: Mr. Cao is a 73-year-old male with ESRD. We are following up this patient for his maintenance hemodialysis. He underwent dialysis yesterday without any difficulty. He requested to shorten his time by about 30 minutes. He did well with the said treatment. He was initially admitted for pneumonia. He is clinically much improved. OBJECTIVE: VITAL SIGNS: Blood pressure 129/65, heart rate 80, respiratory rate 22, temperature 98.5, O2 saturation 97% on room air. GENERAL: Awake, alert, obese, comfortable sitting, not in distress. SKIN: Adequate turgor. HEENT: He has a pinkish conjunctivae. Anicteric sclerae. NECK: No neck mass. No carotid bruits. No JVD. CHEST: No deformities. LUNGS: Clear breath sounds. No wheezing. No crackles. HEART: Normal sinus rhythm. No murmur. No gallops or rubs. ABDOMEN: Globular, soft, nontender. No masses. EXTREMITIES: No edema. MEDICATIONS: Medications of 09/28/2018, were reviewed. LABORATORY DATA: Laboratories of 09/28/2018, glucose 75. 09/27/2018; sodium 129, potassium 4.6, chloride 99, carbon dioxide 16, BUN 63, creatinine 8.59. PTH is 549. ASSESSMENT AND PLAN: 1. End-stage renal disease, stable. Continue current hemodialysis regimen. Again, fluid removal only as tolerated. No changes to be made with the current dialysis regimen. 2. Elevated PTH-started on calcitriol 0.25 mcg tablet daily. 3. Hyperphosphatemia, on Renvela 800 mg one tablet t.i.d. with meals. 4. Pneumonia, clinically improving on IV antibiotics. Recheck basic metabolic and CBC in a.m. Job ID: [id number]
--- NOTE | 2018-09-28 11:30 | PDOC.PN ---
- Subjective Encounter Start Date: 09/28/18 Encounter Start Time: 09:55 Patient seen and examined. No new complaints. No overnight events - Objective Resuscitation Status - Order Detail: 09/25/18 23:06 Resuscitation Status Routine Resuscitation Status: DNAR: NO Resuscitation Discussed with: discussed with pt in detail MAR Reviewed: Yes Vital Signs & Weight: Vital Signs (12 hours) Temp Pulse Resp BP BP Pulse Ox 09/28/18 08:51 80 129/65 09/28/18 08:50 129/68 09/28/18 07:49 98.5 F 80 22 H 129/65 94 L 09/28/18 07:07 80 16 97 09/28/18 04:00 97.6 F 80 20 134/83 97 09/28/18 00:00 99.6 F 92 20 120/61 92 L Weight Weight 262 lb I&O: 09/27/18 09/28/18 09/29/18 06:59 06:59 06:59 Intake Total 480 480 300 Output Total 450 Balance 480 480 -150 Result Diagrams: 09/27/18 05:21 09/27/18 05:20 Additional Labs: Accuchecks 09/28/18 09/27/18 09/27/18 05:03 22:57 16:43 POC Glucose 75 129 H 120 H 09/27/18 11:39 POC Glucose 205 H Phys Exam - Physical Examination Constitutional: NAD HEENT: PERRLA, moist MMs, sclera anicteric Neck: no JVD, supple Respiratory: no wheezing, no rhonchi left side basal rales+ Cardiovascular: RRR, no significant murmur, no rub Gastrointestinal: soft, non-tender, no distention, positive bowel sounds Musculoskeletal: no edema, pulses present Neurological: non-focal, normal sensation, moves all 4 limbs Lymphatic: no nodes Psychiatric: normal affect Skin: no rash, normal turgor Dx/Plan (1) Left lower lobe pneumonia Code(s): J18.1 - LOBAR PNEUMONIA, UNSPECIFIED ORGANISM Status: Acute (2) Hypoglycemia due to type 2 diabetes mellitus Code(s): E11.649 - TYPE 2 DIABETES MELLITUS WITH HYPOGLYCEMIA WITHOUT COMA Status: Acute (3) Type [address] elevation Code(s): I21.A1 - MYOCARDIAL INFARCTION TYPE 2 Status: Acute (4) Diabetes type 2, controlled Code(s): E11.9 - TYPE 2 DIABETES MELLITUS WITHOUT COMPLICATIONS Status: Chronic (5) Dyslipidemia Code(s): E78.5 - HYPERLIPIDEMIA, UNSPECIFIED Status: Chronic (6) ESRD (end stage renal disease) on dialysis Code(s): N18.6 - END STAGE RENAL DISEASE; Z99.2 - DEPENDENCE ON RENAL DIALYSIS Status: Chronic (7) Gout Code(s): M10.9 - GOUT, UNSPECIFIED Status: Chronic (8) Hypertension Code(s): I10 - ESSENTIAL (PRIMARY) HYPERTENSION Status: Chronic (9) Hypothyroidism Code(s): E03.9 - HYPOTHYROIDISM, UNSPECIFIED Status: Chronic (10) Macrocytic anemia Code(s): D53.9 - NUTRITIONAL ANEMIA, UNSPECIFIED Status: Chronic (11) Morbid obesity with BMI of 40.0-44.9, adult Code(s): E66.01 - MORBID (SEVERE) OBESITY DUE TO EXCESS CALORIES; Z68.41 - BODY MASS INDEX (BMI) 40.0-44.9, ADULT Status: Chronic - Plan cont current plan of care, continue antibiotics * medication reviewed as below * symptomatic treatment * continue cefepime and vancomycin * tomorrow after HD will consider discharge home on oral omnicef * ambulate as tolerated. Review of Systems - Review of Systems ENT: negative: Ear Pain, Ear Discharge, Nose Pain, Nose Discharge, Nose Congestion, Mouth Pain, Mouth Swelling, Throat Pain, Throat Swelling, Other Respiratory: negative: Cough, Dry, Shortness of Breath, Hemoptysis, SOB with Excertion, Pleuritic Pain, Sputum, Wheezing Cardiovascular: negative: chest pain, palpitations, orthopnea, paroxysmal nocturnal dyspnea, edema, light headedness, other Gastrointestinal: negative: Nausea, Vomiting, Abdominal Pain, Diarrhea, Constipation, Melena, Hematochezia, Other Genitourinary: negative: Dysuria, Frequency, Incontinence, Hematuria, Retention , Other Musculoskeletal: negative: Neck Pain, Shoulder Pain, Arm Pain, Back Pain, Hand Pain, Leg Pain, Foot Pain, Other Skin: negative: Rash, Lesions, Randall, Bruising, Other - Medications/Allergies Allergies/Adverse Reactions: Allergies Allergy/AdvReac Type Severity Reaction Status Date / Time No Known Drug Allergies Allergy Verified 09/25/18 21:43 Medications: Current Medications Acetaminophen (Tylenol) 650 mg PO Q4H PRN PRN Reason: Headache/Fever/Mild Pain (1-3) Last Admin: 09/27/18 22:25 Dose: 650 mg Hydrocodone Bitart/Acetaminophen ([place] 5/325) 1 tab PO Q6H PRN PRN Reason: Moderate Pain (4-6) Last Admin: 09/28/18 08:52 Dose: 1 tab Albuterol/Ipratropium (Duoneb) 3 ml NEB [id number] [facility] Last Admin: 09/28/18 10:42 Dose: Not Given Allopurinol (Zyloprim) 100 mg PO DAILY [facility] Last Admin: 09/28/18 08:50 Dose: 100 mg Amlodipine Besylate (Norvasc) 10 mg PO DAILY [facility] Last Admin: 09/28/18 08:51 Dose: 10 mg Aspirin (Aspirin) 325 mg PO DAILY [facility] Last Admin: 09/28/18 08:50 Dose: 325 mg Benzonatate (Tessalon) 100 mg PO Q6H PRN PRN Reason: Cough Calcitriol (Rocaltrol) 0.25 mcg PO DAILY [facility] Last Admin: 09/28/18 08:50 Dose: 0.25 mcg Calcium Carbonate (Tums) 1,000 mg PO Q4H PRN PRN Reason: Heartburn or Indigestion Clonidine (Catapres) 0.1 mg PO Q4H PRN PRN Reason: SBP > 160____ Dextrose/Water (Dextrose 50%) 25 gm SLOW IVP PRN PRN PRN Reason: Hypoglycemia Famotidine (Pepcid) 20 mg PO DAILY [facility] Last Admin: 09/28/18 08:50 Dose: 20 mg Glimepiride (Amaryl) 4 mg PO BID-[facility] Last Admin: 09/28/18 08:51 Dose: 4 mg Glucagon (Glucagon) 1 mg IM PRN PRN PRN Reason: Hypoglycemia Guaifenesin (Robitussin Sf) 200 mg PO Q4H PRN PRN Reason: Cough Guaifenesin (Mucinex) 1,200 mg PO Q12HR [facility] Last Admin: 09/28/18 08:51 Dose: 1,200 mg Heparin Sodium (Porcine) (Heparin) 5,000 units SC BID [facility] Last Admin: 09/28/18 08:52 Dose: 5,000 units Hydralazine HCl (Apresoline) 10 mg SLOW IVP Q4H PRN PRN Reason: SBP > 180 and HR < 70 Dextrose/Water (D5w) 1,000 mls @ 0 mls/hr IV .Q0M PRN PRN Reason: Hypoglycemia Vancomycin HCl 1.5 gm/ Sodium (Chloride) 300 mls @ 200 mls/hr IVPB [facility] Vancomycin HCl 1.25 gm/ Sodium (Chloride) 250 mls @ 166.667 mls/hr [facility] Last Admin: 09/27/18 20:21 Dose: 250 mls Vancomycin HCl 1 gm/ Device 200 mls @ 200 [facility]ls[facility] Vancomycin HCl 750 mg/ Sodium (Chloride) 250 mls @ 250 mls/hr [facility] Cefepime HCl 0.5 gm/Miscellaneous Medication 1 each/ Sodium Chloride 100 mls @ 200 mls/hr IVPB 0900 [facility] Last Admin: 09/28/18 08:50 Dose: 100 mls Insulin Human Lispro (Humalog) 0 units SC .MODERATE SLIDING SC PRN PRN Reason: Moderate Correctional Scale Insulin Human Lispro (Humalog) 0 units SC .BEDTIME SLIDING SC PRN PRN Reason: Bedtime Correctional Scale Isosorbide Mononitrate (Imdur Er) 30 mg PO DAILY [facility] Last Admin: 09/28/18 08:51 Dose: 30 mg Levothyroxine Sodium (Synthroid) 175 mcg PO 0600 [facility] Last Admin: 09/28/18 06:23 Dose: 175 mcg Lidocaine (Lidoderm 5% Patch) 1 patch TD Q24HR [facility] Last Admin: 09/27/18 14:15 Dose: 1 patch Lisinopril (Zestril) 10 mg PO QAM [facility] Last Admin: 09/28/18 08:50 Dose: 10 mg Meclizine HCl (Antivert) 25 mg PO DAILY PRN PRN Reason: Dizziness Menthol/Methyl Salicylate (Muscle Rub Cream (Bengay)) 1 gm TOP QID PRN PRN Reason: Pain Miscellaneous Medication (Lidocaine Patch Removal) 1 each TOP 1330 [facility] Last Admin: 09/27/18 14:15 Dose: 1 each Miscellaneous Medication (Pharmacy To Dose) 1 each IVPB PRN PRN PRN Reason: Pharmacy to dose Nitroglycerin (Nitrostat) 0.4 mg SL Q5MIN PRN PRN Reason: Chest Pain Hold Vancomycin For (Level >20) 0 each FS .AT DIALYSIS [facility] Ondansetron HCl (Zofran Odt) 4 mg PO Q6H PRN PRN Reason: Nausea/Vomiting Ondansetron HCl (Zofran) 4 mg IVP Q6H PRN PRN Reason: Nausea/Vomiting Last Admin: 09/26/18 20:28 Dose: 4 mg Rosuvastatin Calcium (Crestor) 20 mg PO HS [facility] Last Admin: 09/27/18 22:25 Dose: 20 mg Senna/Docusate Sodium (Senokot S) 2 tab PO BIDPRN PRN PRN Reason: Constipation Sevelamer Carbonate (Renvela) 800 [facility] PO [facility]ID[facility] Last Admin: 09/28/18 08:58 Dose: Not Given Sodium Chloride (Flush - Normal Saline) 10 ml IVF Q12HR [facility] Last Admin: 09/27/18 22:26 Dose: 10 ml Sodium Chloride (Flush - Normal Saline) 10 ml IVF PRN PRN PRN Reason: Saline Flush
--- NOTE | 2018-09-28 11:39 | PQF ---
CLINICAL DOCUMENTATION IMPROVEMENT CLARIFICATION FORM: ICD-10 Updated PLEASE DO AN ADDENDUM TO THE PROGRESS NOTE WITH ANY DOCUMENTATION UPDATES OR ADDITIONS AND CARRY THROUGH TO DC SUMMARY. THANK YOU. DATE: 09/28/18 ATTN: DR. VITAL Please exercise your independent, professional judgment in responding to the clarification form. Clinical indicators are provided on the bottom of this form for your review Please check appropriate box(es): [ x] Sepsis due to: (Pna, UTI, gangrenous gall bladder, etc.) _pneumonia Due to: [ ] Device (please specify) [ ] Implant [ ] Graft [ ] Infusion [ ] SIRS due to non-infectious process (please specify etiology) [ ] with organ dysfunction [ ] without organ dysfunction [ ] Severe sepsis with acute organ dysfunction of: (Examples: respiratory failure, encephalopathy, acute kidney failure, other) [ ] Septic Shock [ ] Localized infection without sepsis [ ] Other diagnosis [ ] Unable to determine In addition, please specify: Present on Admission (POA): [ x ] Yes [ ] No [ ] Unable to determine For continuity of documentation, please document condition throughout progress notes and discharge summary. Thank You. CLINICAL INDICATORS - SIGNS / SYMPTOMS / LABS PULSE 102 TEMP 103.1 WBC 13.1 RISKS: PNEUMONIA DIABETES ESRD TREATMENT: IV VANCOMYCIN (ER-PRESENT) IV ZOSYN (ER) IV MAXIPIME (09/26-PRESENT) BLOOD CULTURES (This form is maintained as a part of the permanent medical record) 2014 [employer]. All Rights Reserved M[employer]
[2018-09-28] MEDS: Lidocaine 5% Patch TD SCH (14:30)
[2018-09-28] MEDS: Lidocaine Patch Removal 1 EACH TOP SCH (14:30)
[2018-09-28] MEDS: Rosuvastatin 20 MG TAB PO SCH (21:53)
[2018-09-29] MEDS: Levothyroxine 175 MCG TAB PO SCH (05:50)
[2018-09-29] MEDS: HYDROcodone/Acetaminophen 5/325 mg Tablet PO PRN ×2 (05:52→16:57)
[2018-09-29 06:14] LABS: #Eosinphils 0.4 thou/uL (0.0-0.7); #Lymphocytes 1.5 thou/uL (1.20-3.40); #Neutrophils 4.1 thou/uL (1.40-6.50); %Basophils 0.7 % (0.0-1.0); %Eosinophils 5.5 % (0.0-10.0); %Lymphocytes 20.8 % (21.0-51.0); %Monocytes 14.4 % (0.0-10.0); %Neutrophils 58.7 % (42.0-75.0); Hemoglobin 10.9 g/dL (14.0-18.0); Mean Corpuscular HGB CONC 32.9 g/dL (32.0-36.0); Mean Corpuscular Hemoglobin 33.2 pg (27.0-31.0); Mean Platelet Volume 8.9 fL (7.4-10.4); Platelet Count 166 thou/uL (130-400); RBC Distribution Width 12.9 % (11.5-14.5); Red Blood Cell (RBC) Count 3.27 mill/uL (4.70-6.10)
[2018-09-29 06:41] LABS: Anion Gap 15 mmol/L (10-20); BUN (Urea Nitrogen) 40 mg/dL (8.4-25.7); Calc. Creatinine Clearance 18 mL/min (70-130); Calcium 9.8 mg/dL (7.8-10.44); Carbon Dioxide 24 mmol/L (23-31); Chloride 100 mmol/L (98-107); Estimated GFR-MDRD 9; Glucose 143 mg/dL (83-110); Potassium 3.9 mmol/L (3.5-5.1); Sodium 135 mmol/L (136-145)
[2018-09-29] MEDS: Cefepime 0.5 GM, Admixture Fee 1 EACH in Sodium Chloride 0.9% 100 ML IVPB SCH (08:15)
[2018-09-29] MEDS: Aspirin 325 MG TAB PO SCH (08:17)
[2018-09-29] MEDS: Glimepiride 4 MG TAB PO SCH ×2 (08:17→16:55)
[2018-09-29] MEDS: Calcitriol 0.25 MCG CAP PO SCH (08:18)
[2018-09-29] MEDS: guaiFENesin ER 600 MG TAB PO SCH ×2 (08:18→20:32)
[2018-09-29] MEDS: Famotidine 20 MG TAB PO SCH (08:18)
[2018-09-29] MEDS: Allopurinol 100 MG TAB PO SCH (08:18)
[2018-09-29] MEDS: Heparin 5,000 UNITS/ML VIAL SC SCH ×2 (08:19→20:33)
[2018-09-29] MEDS: Sevelamer Carbonate 800 MG TAB PO SCH ×3 (08:19→16:56)
[2018-09-29] MEDS: Amlodipine 10 MG TAB PO SCH (08:37)
[2018-09-29] MEDS: Lisinopril 10 MG TAB PO SCH (08:37)
[2018-09-29 08:48] LABS: Vancomycin, Random 11.1 ug/mL (See Comment)
--- NOTE | 2018-09-29 10:30 | PRG ---
DATE OF SERVICE: 09/29/2018 SUBJECTIVE: Mr. Cao is a 73-year-old male with ESRD, admitted for pneumonia. He is feeling better. The patient requesting to be seen if he will be a candidate for rehab. No other complaints at the dialysis and I am supervising his dialysis at bedside. OBJECTIVE: VITAL SIGNS: Blood pressure 129/65, heart rate 71, respiratory rate 16, temperature 98.2, and pulse oximetry 97%. GENERAL: Awake, alert, comfortable, not in distress. SKIN: Adequate turgor. HEENT: He has pinkish conjunctivae. Anicteric sclerae. No neck mass. No carotid bruits. No JVD. CHEST: No deformities. LUNGS: Clear breath sounds. HEART: Normal sinus rhythm. No murmur. No gallops. No rubs. ABDOMEN: Globular, soft, nontender. No masses. EXTREMITIES: No edema. MEDICATIONS: Medications of September 29, 2018, reviewed. LABORATORY DATA: Laboratories of September 29, 2018; white count 7, hemoglobin 10.9. Sodium 135, potassium 3.9, chloride 100, carbon dioxide 24, BUN 40, creatinine 6.13, glucose 143, and calcium 9.8. ASSESSMENT AND PLAN: 1. Pneumonia, clinically much improved on antibiotics. 2. End-stage renal disease, tolerating current hemodialysis regimen. Fluid removal as tolerated. Continue Thursday, Thursday, and Thursday dialysis regimen. Awaiting for rehab assessment if he will be a candidate. 3. Agree with current management. Job ID: [id number]
--- NOTE | 2018-09-29 12:54 | PDOC.PN ---
- Subjective Encounter Start Date: 09/29/18 Encounter Start Time: 10:10 -: old records requested/rev Patient seen and examined. No new complaints. No overnight events - Objective Resuscitation Status - Order Detail: 09/25/18 23:06 Resuscitation Status Routine Resuscitation Status: DNAR: NO Resuscitation Discussed with: discussed with pt in detail MAR Reviewed: Yes Vital Signs & Weight: Vital Signs (12 hours) Temp Pulse Resp BP BP Pulse Ox 09/29/18 08:37 71 129/65 09/29/18 08:00 98 09/29/18 07:25 97.8 F 97 16 135/76 98 09/29/18 06:21 71 16 97 09/29/18 05:31 98.2 F 71 18 124/66 97 09/29/18 02:45 76 12 09/29/18 01:02 98.4 F 76 18 118/62 97 Weight Weight 262 lb I&O: 09/28/18 09/29/18 09/30/18 06:59 06:59 06:59 Intake Total 480 700 Output Total 450 Balance 480 250 Result Diagrams: 09/29/18 05:04 09/29/18 05:04 Additional Labs: Accuchecks 09/29/18 09/28/18 09/28/18 05:36 21:53 20:10 POC Glucose 139 H 255 H 230 H 09/28/18 16:43 POC Glucose 107 Phys Exam - Physical Examination Constitutional: NAD HEENT: PERRLA, moist MMs, sclera anicteric Neck: no JVD, supple Respiratory: no wheezing, no rales, no rhonchi Cardiovascular: RRR, no significant murmur, no rub Gastrointestinal: soft, non-tender, no distention, positive bowel sounds Musculoskeletal: no edema, pulses present Neurological: non-focal, normal sensation, moves all 4 limbs Lymphatic: no nodes Psychiatric: normal affect, A&O x 3 Skin: no rash, normal turgor Dx/Plan (1) Left lower lobe pneumonia Code(s): J18.1 - LOBAR PNEUMONIA, UNSPECIFIED ORGANISM Status: Acute (2) Hypoglycemia due to type 2 diabetes mellitus Code(s): E11.649 - TYPE 2 DIABETES MELLITUS WITH HYPOGLYCEMIA WITHOUT COMA Status: Acute (3) Type [address] elevation Code(s): I21.A1 - MYOCARDIAL INFARCTION TYPE 2 Status: Acute (4) Diabetes type 2, controlled Code(s): E11.9 - TYPE 2 DIABETES MELLITUS WITHOUT COMPLICATIONS Status: Chronic (5) Dyslipidemia Code(s): E78.5 - HYPERLIPIDEMIA, UNSPECIFIED Status: Chronic (6) ESRD (end stage renal disease) on dialysis Code(s): N18.6 - END STAGE RENAL DISEASE; Z99.2 - DEPENDENCE ON RENAL DIALYSIS Status: Chronic (7) Gout Code(s): M10.9 - GOUT, UNSPECIFIED Status: Chronic (8) Hypertension Code(s): I10 - ESSENTIAL (PRIMARY) HYPERTENSION Status: Chronic (9) Hypothyroidism Code(s): E03.9 - HYPOTHYROIDISM, UNSPECIFIED Status: Chronic (10) Macrocytic anemia Code(s): D53.9 - NUTRITIONAL ANEMIA, UNSPECIFIED Status: Chronic (11) Morbid obesity with BMI of 40.0-44.9, adult Code(s): E66.01 - MORBID (SEVERE) OBESITY DUE TO EXCESS CALORIES; Z68.41 - BODY MASS INDEX (BMI) 40.0-44.9, ADULT Status: Chronic - Plan cont current plan of care, continue antibiotics * pt wants to go to rehab if possible * will start PT/OT and rehab screen * on discharge omnicef * medication reviewed as below * symptomatic treatment. Review of Systems - Review of Systems ENT: negative: Ear Pain, Ear Discharge, Nose Pain, Nose Discharge, Nose Congestion, Mouth Pain, Mouth Swelling, Throat Pain, Throat Swelling, Other Respiratory: negative: Cough, Dry, Shortness of Breath, Hemoptysis, SOB with Excertion, Pleuritic Pain, Sputum, Wheezing Cardiovascular: negative: chest pain, palpitations, orthopnea, paroxysmal nocturnal dyspnea, edema, light headedness, other Gastrointestinal: negative: Nausea, Vomiting, Abdominal Pain, Diarrhea, Constipation, Melena, Hematochezia, Other Genitourinary: negative: Dysuria, Frequency, Incontinence, Hematuria, Retention , Other Musculoskeletal: negative: Neck Pain, Shoulder Pain, Arm Pain, Back Pain, Hand Pain, Leg Pain, Foot Pain, Other - Medications/Allergies Allergies/Adverse Reactions: Allergies Allergy/AdvReac Type Severity Reaction Status Date / Time No Known Drug Allergies Allergy Verified 09/25/18 21:43 Medications: Current Medications Acetaminophen (Tylenol) 650 mg PO Q4H PRN PRN Reason: Headache/Fever/Mild Pain (1-3) Last Admin: 09/27/18 22:25 Dose: 650 mg Hydrocodone Bitart/Acetaminophen ([place] 5/325) 1 tab PO Q6H PRN PRN Reason: Moderate Pain (4-6) Last Admin: 09/29/18 05:52 Dose: 1 tab Albuterol/Ipratropium (Duoneb) 3 ml NEB [id number] [facility] Last Admin: 09/29/18 10:07 Dose: Not Given Allopurinol (Zyloprim) 100 mg PO DAILY [facility] Last Admin: 09/29/18 08:18 Dose: 100 mg Amlodipine Besylate (Norvasc) 10 mg PO DAILY [facility] Last Admin: 09/29/18 08:37 Dose: Not Given Aspirin (Aspirin) 325 mg PO DAILY [facility] Last Admin: 09/29/18 08:17 Dose: 325 mg Benzonatate (Tessalon) 100 mg PO Q6H PRN PRN Reason: Cough Calcitriol (Rocaltrol) 0.25 mcg PO DAILY [facility] Last Admin: 09/29/18 08:18 Dose: 0.25 mcg Calcium Carbonate (Tums) 1,000 mg PO Q4H PRN PRN Reason: Heartburn or Indigestion Clonidine (Catapres) 0.1 mg PO Q4H PRN PRN Reason: SBP > 160____ Dextrose/Water (Dextrose 50%) 25 gm SLOW IVP PRN PRN PRN Reason: Hypoglycemia Famotidine (Pepcid) 20 mg PO DAILY [facility] Last Admin: 09/29/18 08:18 Dose: 20 mg Glimepiride (Amaryl) 4 mg PO BID-WM [facility] Last Admin: 09/29/18 08:17 Dose: 4 mg Glucagon (Glucagon) 1 mg IM PRN PRN PRN Reason: Hypoglycemia Guaifenesin (Robitussin Sf) 200 mg PO Q4H PRN PRN Reason: Cough Guaifenesin (Mucinex) 1,200 mg PO Q12HR [facility] Last Admin: 09/29/18 08:18 Dose: 1,200 mg Heparin Sodium (Porcine) (Heparin) 5,000 units SC BID [facility] Last Admin: 09/29/18 08:19 Dose: Not Given Hydralazine HCl (Apresoline) 10 mg SLOW IVP Q4H PRN PRN Reason: SBP > 180 and HR < 70 Dextrose/Water (D5w) 1,000 mls @ 0 mls/hr IV .Q0M PRN PRN Reason: Hypoglycemia Vancomycin HCl 1.5 gm/ Sodium (Chloride) 300 mls @ 200 mls/hr IVPB [facility] Vancomycin HCl 1.25 gm/ Sodium (Chloride) 250 mls @ 166.667 mls/hr IVPB [facility] Last Admin: 09/27/18 20:21 Dose: 250 mls Vancomycin HCl 1 gm/ Device 200 mls @ 200 mls/hr IVPB [facility] Vancomycin HCl 750 mg/ Sodium (Chloride) 250 mls @ 250 mls/hr IVPB [facility] Cefepime HCl 0.5 gm/Miscellaneous Medication 1 each/ Sodium Chloride 100 mls @ 200 mls/hr IVPB 0900 [facility] Last Admin: 09/29/18 08:15 Dose: 100 mls Insulin Human Lispro (Humalog) 0 units SC .MODERATE SLIDING SC PRN PRN Reason: Moderate Correctional Scale Insulin Human Lispro (Humalog) 0 units SC .BEDTIME SLIDING SC PRN PRN Reason: Bedtime Correctional Scale Last Admin: 09/28/18 21:54 Dose: 3 unit Isosorbide Mononitrate (Imdur Er) 30 mg PO DAILY [facility] Last Admin: 09/29/18 08:37 Dose: Not Given Levothyroxine Sodium (Synthroid) 175 mcg PO 0600 [facility] Last Admin: 09/29/18 05:50 Dose: 175 mcg Lidocaine (Lidoderm 5% Patch) 1 patch TD Q24HR [facility] Last Admin: 09/28/18 14:30 Dose: 1 patch Lisinopril (Zestril) 10 mg PO QAM [facility] Last Admin: 09/29/18 08:37 Dose: Not Given Meclizine HCl (Antivert) 25 mg PO DAILY PRN PRN Reason: Dizziness Menthol/Methyl Salicylate (Muscle Rub Cream (Bengay)) 1 gm TOP QID PRN PRN Reason: Pain Miscellaneous Medication (Lidocaine Patch Removal) 1 each TOP 1330 [facility] Last Admin: 09/28/18 14:30 Dose: 1 each Miscellaneous Medication (Pharmacy To Dose) 1 each IVPB PRN PRN PRN Reason: Pharmacy to dose Nitroglycerin (Nitrostat) 0.4 mg SL Q5MIN PRN PRN Reason: Chest Pain Hold Vancomycin For (Level >20) 0 each FS .AT DIALYSIS [facility] Ondansetron HCl (Zofran Odt) 4 mg PO Q6H PRN PRN Reason: Nausea/Vomiting Ondansetron HCl (Zofran) 4 mg IVP Q6H PRN PRN Reason: Nausea/Vomiting Last Admin: 09/26/18 20:28 Dose: 4 mg Rosuvastatin Calcium (Crestor) 20 mg PO HS [facility] Last Admin: 09/28/18 21:53 Dose: 20 mg Senna/Docusate Sodium (Senokot S) 2 tab PO BIDPRN PRN PRN Reason: Constipation Sevelamer Carbonate (Renvela) 800 mg PO TID-[facility] Last Admin: 09/29/18 12:50 Dose: Not Given Sodium Chloride (Flush - Normal Saline) 10 ml IVF Q12HR [facility] Last Admin: 09/29/18 08:22 Dose: 10 ml Sodium Chloride (Flush - Normal Saline) 10 ml IVF PRN PRN PRN Reason: Saline Flush
[2018-09-29] MEDS ORDERED: Heparin 10,000 UNITS/ 10 ML VIAL ONE (15:00)
[2018-09-29] MEDS: Lidocaine 5% Patch TD SCH (16:56)
[2018-09-29] MEDS: Lidocaine Patch Removal 1 EACH TOP SCH (16:56)
[2018-09-29] MEDS: Rosuvastatin 20 MG TAB PO SCH (20:32)
[2018-09-30] MEDS: Levothyroxine 175 MCG TAB PO SCH (05:37)
[2018-09-30] MEDS ORDERED: Epoetin (ESRD) 20,000 UNITS/ML SC SCH (06:15)
--- NOTE | 2018-09-30 06:42 | PRG ---
DATE OF SERVICE: 09/30/2018 SUBJECTIVE: Mr. Cao is a 73-year-old male with ESRD followed by the [facility] for his maintenance hemodialysis. He underwent hemodialysis yesterday without any difficulty. He was admitted for pneumonia. He is clinically much improved. We are awaiting rehab evaluation with this patient. No new complaints today. No chest pain or shortness of breath. OBJECTIVE: VITAL SIGNS: Blood pressure 146/74, heart rate 81, respiratory rate 16, temperature 98.2, and pulse ox 94 %. GENERAL: Noted to be awake, alert, comfortable, not in distress. SKIN: Adequate turgor. HEENT: He has pinkish conjunctivae. Anicteric sclerae. NECK: No neck mass. No carotid bruits. No JVD. CHEST: No deformities. LUNGS: Clear breath sounds. HEART: Normal sinus rhythm. No murmurs. No gallops. No rubs. ABDOMEN: Globular, soft, and nontender. No masses. EXTREMITIES: No edema. No deformities. MEDICATIONS: Of September 30, 2018, were reviewed. LABORATORY DATA: Of September 29, 2018, white count 7, hemoglobin 10.9. Sodium 135, potassium 3.9, chloride 100, carbon dioxide 24, BUN 40, creatinine 6.13, glucose 143, calcium 9.8. ASSESSMENT AND PLAN: 1. End-stage renal disease, stable. We will continue current Thursday, Thursday, and Thursday hemodialysis regimen. Tolerating said treatment. 2. Pneumonia-currently on IV antibiotics. Doing well. 3. Borderline anemia. We will restart Epogen 7500 units subcu q.week. 4. Currently awaiting rehab evaluation. Job ID: [id number]
[2018-09-30] MEDS: Aspirin 325 MG TAB PO SCH (08:05)
[2018-09-30] MEDS: Calcitriol 0.25 MCG CAP PO SCH (08:05)
[2018-09-30] MEDS: Allopurinol 100 MG TAB PO SCH (08:05)
[2018-09-30] MEDS: HYDROcodone/Acetaminophen 5/325 mg Tablet PO PRN ×2 (08:05→14:31)
[2018-09-30] MEDS: Sevelamer Carbonate 800 MG TAB PO SCH ×2 (08:05→11:20)
[2018-09-30] MEDS: guaiFENesin ER 600 MG TAB PO SCH (08:06)
[2018-09-30] MEDS: Heparin 5,000 UNITS/ML VIAL SC SCH (08:06)
[2018-09-30] MEDS: Amlodipine 10 MG TAB PO SCH (08:06)
[2018-09-30] MEDS: Famotidine 20 MG TAB PO SCH (08:06)
[2018-09-30] MEDS: Lisinopril 10 MG TAB PO SCH (08:06)
[2018-09-30] MEDS: Glimepiride 4 MG TAB PO SCH (08:07)
[2018-09-30] MEDS: Cefepime 0.5 GM, Admixture Fee 1 EACH in Sodium Chloride 0.9% 100 ML IVPB SCH (08:07)
--- NOTE | 2018-09-30 10:27 | PDOC.PN ---
- Subjective Encounter Start Date: 09/30/18 Encounter Start Time: 10:00 Patient seen and examined. No new complaints. No overnight events - Objective Resuscitation Status - Order Detail: 09/25/18 23:06 Resuscitation Status Routine Resuscitation Status: DNAR: NO Resuscitation Discussed with: discussed with pt in detail MAR Reviewed: Yes Vital Signs & Weight: Vital Signs (12 hours) Temp Pulse Resp BP BP Pulse Ox 09/30/18 08:06 78 151/90 H 09/30/18 08:00 91 L 09/30/18 07:59 98.5 F 78 18 151/90 H 91 L 09/30/18 05:54 81 16 94 L Weight Weight 262 lb I&O: 09/29/18 09/30/18 10/01/18 06:59 06:59 06:59 Intake Total 700 240 400 Output Total 450 Balance 250 240 400 Result Diagrams: 09/29/18 05:04 09/29/18 05:04 Additional Labs: Accuchecks 09/30/18 09/29/18 09/29/18 05:39 20:30 16:35 POC Glucose 116 H 200 H 138 H Phys Exam - Physical Examination Constitutional: NAD HEENT: PERRLA, moist MMs, sclera anicteric Neck: no JVD, supple Respiratory: no wheezing, no rales, no rhonchi Cardiovascular: RRR, no significant murmur, no rub Gastrointestinal: soft, non-tender, no distention, positive bowel sounds Musculoskeletal: no edema, pulses present Neurological: non-focal, normal sensation, moves all 4 limbs Lymphatic: no nodes Psychiatric: normal affect, A&O x 3 Skin: no rash, normal turgor Dx/Plan (1) Left lower lobe pneumonia Code(s): J18.1 - LOBAR PNEUMONIA, UNSPECIFIED ORGANISM Status: Acute (2) Hypoglycemia due to type 2 diabetes mellitus Code(s): E11.649 - TYPE 2 DIABETES MELLITUS WITH HYPOGLYCEMIA WITHOUT COMA Status: Acute (3) Type [address] elevation Code(s): I21.A1 - MYOCARDIAL INFARCTION TYPE 2 Status: Acute (4) Diabetes type 2, controlled Code(s): E11.9 - TYPE 2 DIABETES MELLITUS WITHOUT COMPLICATIONS Status: Chronic (5) Dyslipidemia Code(s): E78.5 - HYPERLIPIDEMIA, UNSPECIFIED Status: Chronic (6) ESRD (end stage renal disease) on dialysis Code(s): N18.6 - END STAGE RENAL DISEASE; Z99.2 - DEPENDENCE ON RENAL DIALYSIS Status: Chronic (7) Gout Code(s): M10.9 - GOUT, UNSPECIFIED Status: Chronic (8) Hypertension Code(s): I10 - ESSENTIAL (PRIMARY) HYPERTENSION Status: Chronic (9) Hypothyroidism Code(s): E03.9 - HYPOTHYROIDISM, UNSPECIFIED Status: Chronic (10) Macrocytic anemia Code(s): D53.9 - NUTRITIONAL ANEMIA, UNSPECIFIED Status: Chronic (11) Morbid obesity with BMI of 40.0-44.9, adult Code(s): E66.01 - MORBID (SEVERE) OBESITY DUE TO EXCESS CALORIES; Z68.41 - BODY MASS INDEX (BMI) 40.0-44.9, ADULT Status: Chronic - Plan cont current plan of care, continue antibiotics * medication reviewed as below * symptomatic treatment * stable, await placement. Review of Systems - Review of Systems ENT: negative: Ear Pain, Ear Discharge, Nose Pain, Nose Discharge, Nose Congestion, Mouth Pain, Mouth Swelling, Throat Pain, Throat Swelling, Other Respiratory: negative: Cough, Dry, Shortness of Breath, Hemoptysis, SOB with Excertion, Pleuritic Pain, Sputum, Wheezing Cardiovascular: negative: chest pain, palpitations, orthopnea, paroxysmal nocturnal dyspnea, edema, light headedness, other Gastrointestinal: negative: Nausea, Vomiting, Abdominal Pain, Diarrhea, Constipation, Melena, Hematochezia, Other Genitourinary: negative: Dysuria, Frequency, Incontinence, Hematuria, Retention , Other Musculoskeletal: negative: Neck Pain, Shoulder Pain, Arm Pain, Back Pain, Hand Pain, Leg Pain, Foot Pain, Other Skin: negative: Rash, Lesions, Randall, Bruising, Other - Medications/Allergies Allergies/Adverse Reactions: Allergies Allergy/AdvReac Type Severity Reaction Status Date / Time No Known Drug Allergies Allergy Verified 09/25/18 21:43 Medications: Current Medications Acetaminophen (Tylenol) 650 mg PO Q4H PRN PRN Reason: Headache/Fever/Mild Pain (1-3) Last Admin: 09/27/18 22:25 Dose: 650 mg Hydrocodone Bitart/Acetaminophen ([place] 5/325) 1 tab PO Q6H PRN PRN Reason: Moderate Pain (4-6) Last Admin: 09/30/18 08:05 Dose: 1 tab Albuterol/Ipratropium (Duoneb) 3 ml NEB Q4H PRN PRN Reason: SOB Allopurinol (Zyloprim) 100 mg PO DAILY [facility] Last Admin: 09/30/18 08:05 Dose: 100 mg Amlodipine Besylate (Norvasc) 10 mg PO DAILY [facility] Last Admin: 09/30/18 08:06 Dose: 10 mg Aspirin (Aspirin) 325 mg PO DAILY [facility] Last Admin: 09/30/18 08:05 Dose: 325 mg Benzonatate (Tessalon) 100 mg PO Q6H PRN PRN Reason: Cough Calcitriol (Rocaltrol) 0.25 mcg PO DAILY [facility] Last Admin: 09/30/18 08:05 Dose: 0.25 mcg Calcium Carbonate (Tums) 1,000 mg PO Q4H PRN PRN Reason: Heartburn or Indigestion Clonidine (Catapres) 0.1 mg PO Q4H PRN PRN Reason: SBP > 160____ Dextrose/Water (Dextrose 50%) 25 gm SLOW IVP PRN PRN PRN Reason: Hypoglycemia Famotidine (Pepcid) 20 mg PO DAILY [facility] Last Admin: 09/30/18 08:06 Dose: 20 mg Glimepiride (Amaryl) 4 mg PO BID-[facility] Last Admin: 09/30/18 08:07 Dose: 4 mg Glucagon (Glucagon) 1 mg IM PRN PRN PRN Reason: Hypoglycemia Guaifenesin (Robitussin Sf) 200 mg PO Q4H PRN PRN Reason: Cough Guaifenesin (Mucinex) 1,200 mg PO Q12HR [facility] Last Admin: 09/30/18 08:06 Dose: 1,200 mg Heparin Sodium (Porcine) (Heparin) 5,000 units SC BID [facility] Last Admin: 09/30/18 08:06 Dose: 5,000 units Hydralazine HCl (Apresoline) 10 mg SLOW IVP Q4H PRN PRN Reason: SBP > 180 and HR < 70 Dextrose/Water (D5w) 1,000 mls @ 0 mls/hr IV .Q0M PRN PRN Reason: Hypoglycemia Vancomycin HCl 1.5 gm/ Sodium (Chloride) 300 mls @ 200 mls/hr IVPB [facility] Vancomycin HCl 1.25 gm/ Sodium (Chloride) 250 mls @ 166.667 mls/hr IVPB [facility] Last Admin: 09/27/18 20:21 Dose: 250 mls Vancomycin HCl 1 gm/ Device 200 mls @ 200 mls/hr IVPB [facility] Last Admin: 09/29/18 12:25 Dose: 200 mls Vancomycin HCl 750 mg/ Sodium (Chloride) 250 mls @ 250 mls/[facility] Cefepime HCl 0.5 gm/Miscellaneous Medication 1 each/ Sodium Chloride 100 mls @ 200 mls/hr IVPB 0900 [facility] Last Admin: 09/30/18 08:07 Dose: 100 mls Insulin Human Lispro (Humalog) 0 units SC .MODERATE SLIDING SC PRN PRN Reason: Moderate Correctional Scale Insulin Human Lispro (Humalog) 0 units SC .BEDTIME SLIDING SC PRN PRN Reason: Bedtime Correctional Scale Last Admin: 09/28/18 21:54 Dose: 3 unit Isosorbide Mononitrate (Imdur Er) 30 mg PO DAILY [facility] Last Admin: 09/30/18 08:05 Dose: 30 mg Levothyroxine Sodium (Synthroid) 175 mcg PO 0600 [facility] Last Admin: 09/30/18 05:37 Dose: 175 mcg Lidocaine (Lidoderm 5% Patch) 1 patch TD Q24HR [facility] Last Admin: 09/29/18 16:56 Dose: 1 patch Lisinopril (Zestril) 10 mg PO QAM [facility] Last Admin: 09/30/18 08:06 Dose: 10 mg Meclizine HCl (Antivert) 25 mg PO DAILY PRN PRN Reason: Dizziness Menthol/Methyl Salicylate (Muscle Rub Cream (Bengay)) 1 gm TOP QID PRN PRN Reason: Pain Miscellaneous Medication (Lidocaine Patch Removal) 1 each TOP 1330 [facility] Last Admin: 09/29/18 16:56 Dose: 1 each Miscellaneous Medication (Pharmacy To Dose) 1 each IVPB PRN PRN PRN Reason: Pharmacy to dose Nitroglycerin (Nitrostat) 0.4 mg SL Q5MIN PRN PRN Reason: Chest Pain Hold Vancomycin For (Level >20) 0 each FS .AT DIALYSIS [facility] Ondansetron HCl (Zofran Odt) 4 mg PO Q6H PRN PRN Reason: Nausea/Vomiting Ondansetron HCl (Zofran) 4 mg IVP Q6H PRN PRN Reason: Nausea/Vomiting Last Admin: 09/26/18 20:28 Dose: 4 mg Rosuvastatin Calcium (Crestor) 20 mg PO HS [facility] Last Admin: 09/29/18 20:32 Dose: 20 mg Senna/Docusate Sodium (Senokot S) 2 tab PO BIDPRN PRN PRN Reason: Constipation Sevelamer Carbonate (Renvela) 800 mg PO TID-[facility] Last Admin: 09/30/18 08:05 Dose: Not Given Sodium Chloride (Flush - Normal Saline) 10 ml IVF Q12HR [facility] Last Admin: 09/30/18 08:07 Dose: 10 ml Sodium Chloride (Flush - Normal Saline) 10 ml IVF PRN PRN PRN Reason: Saline Flush
[2018-09-30 11:47] VITALS: BP 152/77; TEMP 97.1
[2018-09-30] MEDS ORDERED: EPOETIN ALFA-EPBX (ESRD) 10,000 UNIT/ML VIAL SC SCH (12:00)
--- NOTE | 2018-09-30 14:15 | DIS ---
DATE OF ADMISSION: 09/25/2018 DATE OF DISCHARGE: 09/30/2018 PRIMARY CARE PHYSICIAN: [facility] Call Admission. DISCHARGE DISPOSITION: Rehab. PRIMARY DISCHARGE DIAGNOSES: Left lower lobe community-acquired pneumonia; hypoglycemia due to diabetes, type 2; type [address] elevation due to pneumonia. SECONDARY DISCHARGE DIAGNOSES: Morbid obesity with BMI of 42; macrocytic anemia; hypothyroidism; hypertension; gout; end-stage renal disease, on hemodialysis; diabetes, type 2. PRIMARY PROCEDURE/OPERATION: Maintenance hemodialysis. RADIOLOGICAL INVESTIGATION: Chest x-ray showed left lower lobe pneumonia. Shoulder x-ray was unremarkable. SIGNIFICANT LABORATORY DATA: Hemoglobin 10.9, WBC 7.0. Creatinine 6.13. Blood culture negative. Influenza negative. DISCHARGE MEDICATIONS: 1. Omnicef 300 mg daily for 7 days. 2. Crestor 20 mg p.o. at bedtime. 3. Meclizine 25 mg p.o. daily p.r.n. 4. Lisinopril 10 mg daily. 5. Synthroid 175 mcg daily. 6. Imdur 30 mg daily. 7. Glimepiride 4 mg b.i.d. 8. Aspirin 325 mg p.o. daily. 9. Amlodipine 10 mg daily. 10. Allopurinol 100 mg p.o. daily. CONTRAINDICATION: None. CODE STATUS: Full code. INPATIENT PROJECT/PRODUCTION MANAGER IMAGING: Dr. Hernandez. TEST RESULT PENDING ON DISCHARGE: None. ALLERGIES: NO KNOWN DRUG ALLERGIES. DISCHARGE PLAN: Post hospital, the patient will follow up with primary care physician. The patient is advised to get repeat chest x-ray in 1 month. HOSPITAL COURSE: A 73-year-old male, who was admitted by Dr. Patricia Cardenas, please see her H and P for further detail. The patient was having increasing cough, shortness of breath, weakness. He was having sepsis criteria. He had demand ischemia secondary to pneumonia. He was treated with cefepime and vancomycin while in hospital with significant clinical improvement. He was no longer requiring oxygen by the time of discharge. His hypoxia resolved and his leukocytosis improved. His culture remained negative, though coagulase-negative Staph aureus is contaminant. The patient is given Omnicef upon discharge for another 7, days and I advised him to get repeat chest x-ray in one month for followup resolution. The patient was requesting rehab placement and that is why with help of case work aide, we arranged rehab upon discharge. Paperwork for discharge done and discharge medication reconciliation done. Total time spent on discharge day, 31 minutes. Job ID: [id number]
[2018-09-30] MEDS: Lidocaine 5% Patch TD SCH (14:31)
[2018-09-30] MEDS: Lidocaine Patch Removal 1 EACH TOP SCH (14:33)
[2018-09-30] MEDS ORDERED: EPOETIN ALFA-EPBX (ESRD) 4,000 UNIT/ML VIAL SC SCH (15:15)
== END 2018-09-30 15:27 | DRG 871 ==
LOC: ERS 18:48 → T4-B 21:13
PROVIDERS: ADMIT Internal Medicine; ATTEND Internal Medicine
PROC: 5A1D70Z Performance of Urinary Filtration, Intermittent, Less than 6 Hours Per Day (ICD-10-PCS; principal; 2018-09-27)
DX: A41.9 Sepsis, unspecified organism (principal); J18.1 Lobar pneumonia, unspecified organism; I21.A1 Myocardial infarction type 2; N18.6 End stage renal disease; I12.0 Hypertensive chronic kidney disease with stage 5 chronic kidney disease or end stage renal disease; Z68.41 Body mass index [BMI] 40.0-44.9, adult; Z66 Do not resuscitate; D53.9 Nutritional anemia, unspecified; E11.22 Type 2 diabetes mellitus with diabetic chronic kidney disease; E78.00 Pure hypercholesterolemia, unspecified; Y95 Nosocomial condition; E66.01 Morbid (severe) obesity due to excess calories; M10.9 Gout, unspecified; E03.9 Hypothyroidism, unspecified; M19.90 Unspecified osteoarthritis, unspecified site; E11.649 Type 2 diabetes mellitus with hypoglycemia without coma; E83.39 Other disorders of phosphorus metabolism; Z79.84 Long term (current) use of oral hypoglycemic drugs; Z99.2 Dependence on renal dialysis; Z79.82 Long term (current) use of aspirin; Z79.899 Other long term (current) drug therapy
CPT/HCPCS: 36415; 36416; 71045; 80048; 80053; 80202; 81001; 82553; 83605; 83970; 84100; 84484; 85025; 87040; 87149; 87340; 87804; 90935; 94640; 96365; 96375; G0257; J0692; J1644; J2405; J2543; J3370; J3490; J7050; J7620; Q5105

== ENCOUNTER 2019-04-04 15:36 | Observation (INO) | payer MEDICARE ==
[~2019-04-04 15:36] MED LIST: Iopamidol-370 76% 500 ML 1 ML ONE
--- NOTE | 2019-04-04 16:27 | RAD ---
2 view chest: [04/04/2019] Comparion:04/21/2018 HISTORY: Hypotension, shortness of breath FINDINGS: Cardiac silhouette is enlarged. New pulmonary vascular congestion with new linear interstit ial density in the perihilar regions and both lung bases. No large volume pleural effusion, focal consolidation, or pneumothorax. IMPRESSION: Findings suggesting interval development of interstitial pulmonary edema.
[2019-04-04 17:22] LABS: #Basophils 0.1 thou/uL (0.0-0.2); #Eosinphils 0.3 thou/uL (0.0-0.7); #Lymphocytes 2.5 thou/uL (1.20-3.40); #Monocytes 0.6 thou/uL (0.11-0.59); #Neutrophils 4.7 thou/uL (1.40-6.50); %Basophils 0.8 % (0.0-1.0); %Eosinophils 3.4 % (0.0-10.0); %Lymphocytes 30.8 % (21.0-51.0); %Neutrophils 58.1 % (42.0-75.0); Hemoglobin 11.8 g/dL (14.0-18.0); Mean Corpuscular HGB CONC 33.4 g/dL (32.0-36.0); Mean Corpuscular Hemoglobin 34.1 pg (27.0-31.0); Platelet Count 127 thou/uL (130-400); RBC Distribution Width 12.5 % (11.5-14.5); Red Blood Cell (RBC) Count 3.46 mill/uL (4.70-6.10); White Blood Cell (WBC) Count 8.2 thou/uL (4.8-10.8)
[2019-04-04 17:30] LABS: INR-International Normal Ratio 1.1
[2019-04-04 17:31] LABS: PTT 69.2 SEC (22.9-36.1)
[2019-04-04 17:43] LABS: ALT (SGPT) 24 U/L (8-55); AST (SGOT) 13 U/L (5-34); Albumin 3.8 g/dL (3.4-4.8); Alkaline Phosphatase 91 U/L (40-110); Anion Gap 10 mmol/L (10-20); BUN (Urea Nitrogen) 23 mg/dL (8.4-25.7); Bilirubin, Total 0.7 mg/dL (0.2-1.2); CK (CPK) 115 U/L (30-200); Calc. Creatinine Clearance 0 mL/min (70-130); Calcium 9.1 mg/dL (7.8-10.44); Carbon Dioxide 36 mmol/L (23-31); Chloride 99 mmol/L (98-107); Estimated GFR-MDRD 17; Globulin 3.7 g/dL (2.4-3.5); Glucose 86 mg/dL (83-110); Potassium 3.5 mmol/L (3.5-5.1); Protein, Total 7.5 g/dL (5.8-8.1); Sodium 141 mmol/L (136-145)
--- NOTE | 2019-04-04 18:02 | ULT ---
Venous duplex sonogram right lower extremity HISTORY: Right leg pain and edema. History of DVT. FINDINGS: The common femoral vein at the greater saphenous junction and the femoral vein are incomple tely compressible and contain echogenic material. Some flow is seen around the nonocclusive thrombus. Good color and spectral Doppler flow with complete compressibility of the popliteal vein and posterio r tibial vein. IMPRESSION: Incompletely occlusive, chronic appearing thrombus involving the right common femoral and femoral veins.
--- NOTE | 2019-04-04 18:09 | CT ---
CT arteriogram chest with IV contrast and 3-D imaging HISTORY: Dyspnea. Chest pain. COMPARISON: 12/01/2014. FINDINGS: There is good contrast opacification of the pulmonary arteries and thoracic aorta with norm al branching of the great vessels at the aortic arch. Patchy areas of parenchymal opacity involving each lung base. Appearance of linear scarring at the right anterior lung base. Less focal, somewhat g roundglass opacity at the left posterior lung base. No pleural fluid or pneumothorax. Old, incompletely healed fractures at the posterior aspects of right rib 1 and left rib 11. Healed fr acture at the anterolateral aspect of left rib 4. IMPRESSION: No CT evidence of pulmonary embolus. Small focus of parenchymal infiltrate versus atelectasis at the left posterior lung base. Also bilate ral parenchymal scarring. Atherosclerosis. Old rib fractures.
[2019-04-04 20:49] LABS: Troponin I 0.018 ng/mL (< 0.028)
[2019-04-04] MEDS ORDERED: Ondansetron ODT 4 MG TAB SL PRN (22:09)
[2019-04-04] MEDS ORDERED: Ondansetron PF 4 MG/2 ML Vial IVP PRN ×2 (22:09→22:51)
[2019-04-04 22:17] VITALS: BMI 39.5
[2019-04-04] MEDS ORDERED: HumaLOG 300 UNITS/3 ML VIAL SC PRN ×2 (22:37)
[2019-04-04] MEDS ORDERED: Dextrose 50% Abboject 50 ML SYRINGE SLOW IVP PRN (22:37)
[2019-04-04] MEDS ORDERED: Dextrose 5% in Water 1,000 ML IV PRN (22:37)
[2019-04-04] MEDS ORDERED: Meclizine HCl 25 MG TAB PO PRN (22:44)
[2019-04-04] MEDS ORDERED: FLU VACC TS2019-20(65YR UP)/PF 180 MCG/0.5 ML SYRINGE IM ONE (22:45)
[2019-04-04] MEDS ORDERED: Ondansetron ODT 4 MG TAB PO PRN (22:51)
[2019-04-04] MEDS ORDERED: Acetaminophen 325 MG TAB PO PRN (22:51)
[2019-04-04] MEDS ORDERED: Acetaminophen 650 MG Suppository PR PRN (22:51)
[2019-04-04] MEDS ORDERED: Sodium Chloride 0.65% Nasal 44 ML BOT EA NARE PRN (23:01)
[2019-04-04 23:29] LABS: Lactic Acid 1.3 mmol/L (0.5-2.2)
[2019-04-04 23:39] LABS: Troponin I Less than 0.010 ng/mL (< 0.028)
--- NOTE | 2019-04-05 02:55 | HP ---
PRIMARY CARE PHYSICIAN: Missy Frazier MD CHIEF COMPLAINT: Shortness of breath. HISTORY OF PRESENT ILLNESS: Mr. Cao is a 73-year-old man, who presents with shortness of breath per ED reports; however, the patient states that he was told by the nursing staff while undergoing dialysis that his face "did not look right." The patient states he was 30 minutes into his dialysis when it was stopped. The patient denies feeling short of breath and states he does have nasal congestion. He denies any complaints at this present time except for right-sided hip pain, which is chronic. He has not had any chest pain or palpitations. Denies any fevers, but has been experiencing chills since arriving to the emergency department and states the room feels cold. Denies being unwell in recent days. No headaches or dizziness. Denies any extremity numbness or tingling. No facial numbness or tingling. According to the ED nurse, he was reported to have slurred speech, but no facial droop. The patient states his face is usually "droopy." The patient expressed being upset because he does not understand why he is here or why he is being admitted. States he has had multiple tests done in the ER and has not had any results. PAST MEDICAL HISTORY: 1. End-stage renal disease, on dialysis Thursday, Thursday, Thursday. His home appliance washing machine mechanic is Dr. Hernandez. 2. Type 2 diabetes mellitus. 3. Hyperlipidemia. 4. Hypertension. 5. Chronic right hip pain. 6. Chronic left shoulder pain. 7. Obesity. PAST SURGICAL HISTORY: Knee surgery and ankle surgery. SOCIAL HISTORY: The patient mobilizes with a walker. Denies any alcohol consumption or illicit drug use. No smoking history. ALLERGIES: NO KNOWN DRUG ALLERGIES. CURRENT MEDICATIONS: 1. Amlodipine. 2. Aspirin. 3. Crestor. 4. Hydrocodone. 5. Imdur. 6. Lisinopril. 7. Allopurinol. 8. Levothyroxine. 9. Glimepiride. 10. Lyrica. PHYSICAL EXAMINATION: GENERAL: The patient appears obese, well developed, in no acute distress, lying on the stretcher. VITAL SIGNS: Temperature 99, pulse is 74, blood pressure 154/73, respirations 14, O2 saturation 97% on room air. HEENT: Normocephalic and atraumatic. Pupils are equal, round, reactive to light. Sclerae without icterus. Oropharynx is clear. NECK: Supple. LUNGS: Clear to auscultation bilaterally without any wheezes, rales, or rhonchi. CARDIAC: Regular rate and rhythm. ABDOMEN: Soft, nontender, nondistended. Normoactive bowel sounds present. No guarding or rigidity. No renal angle tenderness. EXTREMITIES: No lower leg swelling or edema. NEUROLOGIC: Alert and oriented x3. Speech normal. Facial movements normal. No altered sensation. Power 5/5 in all limbs with no numbness or tingling in either his upper or lower extremities. No past-pointing. Speech normal. Facial movements normal. No neuro deficits on exam. SKIN: Normal. Warm and dry. LABORATORY DATA: Laboratory studies showed white count of 8.2, hemoglobin 11.8, hematocrit 35.3, platelets 127, neutrophils 58.1%. Sodium 141, potassium 3.5, carbon dioxide 36, anion gap 10, BUN 23, creatinine 3.46, GFR 17, glucose 86, calcium 9.1, total bilirubin 0.7, AST 13, ALT 24, alkaline phosphatase 91, CK 115. Troponin negative x2. BNP 203.2, total protein 7.4, albumin 3.8. IMAGING DATA: 1. Chest x-ray showed findings suggestive of interval development of interstitial pulmonary edema. 2. CT angiogram of the chest showed no evidence of pulmonary embolus. A small focus of parenchymal infiltrate versus atelectasis of the left posterior lung base present. Also bilateral parenchymal scarring. Atherosclerosis present. Old rib fractures. 3. Vascular ultrasound demonstrated incompletely occlusive chronic-appearing thrombus involving the right common femoral vein at the greater saphenous junction and the femoral vein. (The patient states he was previously on anticoagulation and is known to have a DVT, but told he no longer required anticoagulation). IMPRESSION AND PLAN: Mr. Cao is a 73-year-old gentleman, who is unclear why he was brought into the hospital, but per ED, he is being referred for witnessed shortness of breath by staff while he was undergoing dialysis, requiring dialysis to be stopped 30 minutes into the session due to concerns by staff. He is being referred for management of the followin. Shortness of breath. CT angiogram was negative for pulmonary embolism. He does have a GFR of 17 and did not complete dialysis. Per patient, he only received 30 minutes of dialysis. It does not appear that the case was discussed with Nephrology. His home appliance washing machine mechanic is Dr. Hernandez. Dr. Barrett is aware and advised ED physician to discuss with Nephrology if hemodialysis will be needed tonight in light of contrast given and patient not completing a dialysis today. 2. BNP mildly elevated at 203. The patient states he feels he is at his baseline. There was a small focus noted concerning for parenchymal infiltrate versus atelectasis at the left posterior lung base. He is afebrile, but does have chills. No white count. We will add on lactic acid and procalcitonin before initiating any antibiotics as per discussion with Dr. Ayala. 3. Hypertension. Monitor blood pressure and resume home medications once verified. 4. Diabetes mellitus. We will hold his usual medications and will cover with insulin sliding scale. 5. Hypothyroidism. We will resume home medication and check TSH with morning labs. 6. Chronic hip pain. We will hold Lyrica for now. He has been taking abnormal quantities according to the floor nurse, who verified his home medication. Job ID: [id number]
[2019-04-05] MEDS: Levothyroxine 175 MCG TAB PO SCH (03:28)
[2019-04-05] MEDS: HYDROcodone/Acetaminophen 5/325 mg Tablet PO PRN ×5 (03:28→22:48)
[2019-04-05 05:30] LABS: #Eosinphils 0.3 thou/uL (0.0-0.7); #Lymphocytes 1.7 thou/uL (1.20-3.40); #Monocytes 0.7 thou/uL (0.11-0.59); #Neutrophils 3.9 thou/uL (1.40-6.50); %Basophils 0.5 % (0.0-1.0); %Eosinophils 3.8 % (0.0-10.0); %Neutrophils 58.7 % (42.0-75.0); Mean Corpuscular HGB CONC 33.5 g/dL (32.0-36.0); Mean Corpuscular Hemoglobin 34.4 pg (27.0-31.0); Mean Platelet Volume 8.6 fL (7.4-10.4); Platelet Count 113 thou/uL (130-400); RBC Distribution Width 12.6 % (11.5-14.5); Red Blood Cell (RBC) Count 3.19 mill/uL (4.70-6.10); White Blood Cell (WBC) Count 6.6 thou/uL (4.8-10.8)
[2019-04-05 05:38] LABS: Anion Gap 12 mmol/L (10-20); BUN (Urea Nitrogen) 35 mg/dL (8.4-25.7); Calc. Creatinine Clearance 25 mL/min (70-130); Carbon Dioxide 31 mmol/L (23-31); Chloride 99 mmol/L (98-107); Estimated GFR-MDRD 13; Glucose 103 mg/dL (83-110); Potassium 3.7 mmol/L (3.5-5.1); Sodium 138 mmol/L (136-145)
[2019-04-05 08:55] LABS: HBSAg Index 0.17 S/CO (0-0.99); Hep B Surf Ag Non-Reactive S/CO (NonReactive)
[2019-04-05] MEDS ORDERED: FLU VACC TS2019-20(65YR UP)/PF 180 MCG/0.5 ML SYRINGE IM ONE (09:00)
[2019-04-05] MEDS ORDERED: Famotidine/PF 20 mg/2ml Vial SLOW IVP SCH (09:00)
--- NOTE | 2019-04-05 09:21 | CON ---
DATE OF CONSULTATION: HISTORY OF PRESENT ILLNESS: Mr. Cao is a 73-year-old male with ESRD, who was admitted due to a ? or shortness of breath. He was sent from the dialysis unit yesterday due to decreased mentation. Of interest, this patient has been started recently by his physical therapy/pain doctor with Lyrica. We did explain to the patient that it could be the side effect of the Lyrica. Due to the fact he received contrast with a CT scan, we are being requested to do an extra dialysis with this patient. I have scheduled him for a 2-hour hemodialysis. The patient is more awake and is breathing better this morning. REVIEW OF SYSTEMS: No chest pain. No shortness of breath. No nausea. No vomiting. Appetite and energy level are fair. No headache. No diplopia. No syncopal episode. No productive cough. No fever or chills. No diarrhea. No constipation. No dysuria. No hematochezia. No melena. Positive for chronic leg weakness. Positive for resting tremors. MEDICATIONS: On April 05, 2019; 1. Acetaminophen 650 mg q.4 p.r.n. 2. Amlodipine 10 mg tablet once a day. 3. Aspirin 325 mg at bedtime. 4. Famotidine 20 mg daily. 5. Humalog sliding scale. 6. Imdur 30 mg tablet once a day. 7. Meclizine 25 mg daily p.r.n. 8. Zofran 4 mg q.6 p.r.n. PAST MEDICAL HISTORY: 1. Chronic resting tremor. 2. ESRD on maintenance hemodialysis on Thursday, Thursday, and Thursday. 3. The patient has history of DJD. 4. History of hypertension. 5. Type 2 diabetes mellitus. 6. Hypothyroidism. 7. Gout. 8. Hyperlipidemia. PAST SURGICAL HISTORY: Status post ankle surgery, status post AV fistula placement, status post knee surgery, status post cuffed hemodialysis catheter placement, and status post colonoscopy. SOCIAL HISTORY: The patient lives alone in [place]. He has several children. Currently, no smoking or alcohol intake. No IV drug abuse. Status post blood transfusion. Sedentary lifestyle. Education, high school. ALLERGIES: NO KNOWN DRUG ALLERGIES. TRAUMA: None. IMMUNIZATIONS: Up-to-date. HOSPITALIZATIONS: Please see past medical history. FAMILY HISTORY: No family history of ESRD. PHYSICAL EXAMINATION: VITAL SIGNS: Blood pressure 140/67, heart rate 67, respiratory rate 18, temperature 98.5, and pulse ox 94%. GENERAL: Noted to be awake, alert, comfortable, not in distress. SKIN: Adequate turgor. HEENT: He has pinkish conjunctivae. Anicteric sclerae. NECK: No neck mass. No carotid bruits. No JVD. CHEST: No deformities. LUNGS: Clear breath sounds. No wheezing. No crackles. HEART: Normal sinus rhythm. No murmurs. No gallops. No rubs. ABDOMEN: Globular, soft, and nontender. No masses. EXTREMITIES: No edema. Positive for chronic leg weakness. NEUROLOGICAL: Awake, alert, comfortable, moving all extremities except for decreased motor on lower extremities. LABORATORY DATA: Laboratories of April 05, 2019; white count 6.6, hemoglobin 11. Sodium 138, potassium 3.7, chloride 99, carbon dioxide 31, BUN 35, creatinine 4.43, glucose 103, and calcium 9. CT scan of the chest on April 04, 2019, no evidence of pulmonary embolus. ASSESSMENT AND PLAN: 1. End-stage renal disease, stable. We will do extra hemodialysis due to the contrast load given last night. We will do a 2-hour hemodialysis. We will then resume his Thursday, Thursday, and Thursday hemodialysis if the patient is still in the hospital. 2. Confusion, decreased mentation, most likely from Lyrica. The patient has already stopped this medication. 3. Shortness of breath, resolved. Agree with current management. Job ID: [id number]
[2019-04-05] MEDS ORDERED: Morphine 2 MG/ML SYRINGE SLOW IVP PRN (10:51)
[2019-04-05] MEDS ORDERED: Lorazepam 2 MG/ML VIAL SLOW IVP SCH (11:00)
[2019-04-05] MEDS ORDERED: Heparin 10,000 UNITS/ 10 ML VIAL ONE (11:11)
[2019-04-05] MEDS: Allopurinol 100 MG TAB PO SCH (13:16)
[2019-04-05] MEDS: Famotidine 20 MG TAB PO SCH (13:17)
[2019-04-05] MEDS: Amlodipine 10 MG TAB PO SCH (13:17)
[2019-04-05] MEDS: Isosorbide Mononitrate (ER) 30 MG TAB PO SCH (13:17)
--- NOTE | 2019-04-05 15:07 | ULT ---
BILATERAL CAROTID DUPLEX ULTRASOUND: HISTORY: TIA TECHNIQUE: Grayscale, color-flow and spectral Doppler ultrasound imaging of the extracranial carotid artery syst ems was performed bilaterally. FINDINGS: No significant atherosclerotic plaque is seen in the region of the internal carotid arteries bilatera lly. There is no hemodynamically significant stenosis in the bilateral internal carotid arteries according to the peak systolic velocities and the ICA/CCA ratios. The peak systolic velocity in the right ICA measures 69 cm/s. The peak systolic velocity in the left ICA measures 94 cm/s. The right ICA/CC A ratio is 0.74, and the left ICA/CCA ratio is 0.96. Vertebral arteries: Antegrade flow is demonstrated in the vertebral arteries bilaterally. IMPRESSION: No hemodynamically significant stenosis in the bilateral internal carotid arteries.
--- NOTE | 2019-04-05 15:28 | CT ---
EXAM: CT brain without contrast HISTORY: Slurred speech COMPARISON: None TECHNIQUE: Multiple contiguous axial images were obtained and a CT of the brain without contrast. FINDINGS: There are scattered hypodensities in the subcortical and periventricular white matter consi stent with small vessel ischemic disease. There is no evidence of hydrocephalus, intracranial hemorrhage, or extra-axial fluid collection. The calvarium and overlying soft tissues are unremarkable. The visualized paranasal sinuses are well aerated. The patient has had prior left mastoid surgery. IMPRESSION: No evidence of acute intracranial abnormality
[2019-04-05] MEDS ORDERED: Rosuvastatin 20 MG TAB PO SCH (21:00)
[2019-04-05] MEDS ORDERED: Aspirin 325 MG TAB PO SCH (21:00)
[2019-04-06] MEDS: HYDROcodone/Acetaminophen 5/325 mg Tablet PO PRN (06:00)
[2019-04-06] MEDS: Levothyroxine 175 MCG TAB PO SCH (06:00)
[2019-04-06 06:43] LABS: Cardiac Risk 3.2 (Less than 4.5)
--- NOTE | 2019-04-06 06:50 | PDOC.HOSPP ---
- Subjective Encounter Date: 04/05/19 Encounter Time: 09:00 Subjective: pt up in dialysis complains of pain to his left hip - Objective Vital Signs & Weight: Vital Signs (12 hours) Temp Pulse Resp BP Pulse Ox 04/06/19 04:00 98.4 F 68 14 134/69 95 04/06/19 00:00 98.8 F 72 15 147/72 H 94 L 04/05/19 20:00 98.7 F 70 12 137/74 95 Weight Admit Weight 267 lb 9.6 oz Weight 257 lb I&O: 04/04/19 04/05/19 04/06/19 06:59 06:59 06:59 Intake Total 1480 1100 Output Total 350 300 Balance 1130 800 Result Diagrams: 04/05/19 04:47 04/05/19 04:47 Additional Labs: Accuchecks 04/06/19 04/05/19 04/05/19 06:04 22:42 17:09 POC Glucose 101 86 75 04/05/19 11:45 POC Glucose 75 Hospitalist ROS - Review of Systems Cardiovascular: denies: chest pain, palpitations, orthopnea, paroxysmal noc. dyspnea, edema, light headedness, other Musculoskeletal: reports: other (hip area) - Medication Medications: Active Medications Generic Name Dose Route Start Last Admin Trade Name Freq PRN Reason Stop Dose Admin Acetaminophen 650 mg 04/04/19 22:51 04/04/19 23:35 Tylenol PO 650 mg Q4H PRN Administration Headache/Fever/Mild Pain (1-3) Hydrocodone Bitart/Acetaminophen 1 tab 04/05/19 13:30 04/06/19 06:00 [place] 5/325 PO 1 tab Q4H PRN Administration Moderate Pain (4-6) Allopurinol 100 mg 04/05/19 09:00 04/05/19 13:16 Zyloprim PO Not Given DAILY [facility] Amlodipine Besylate 10 mg 04/05/19 09:00 04/05/19 13:17 Norvasc PO Not Given DAILY [facility] Aspirin 325 mg 04/05/19 21:00 04/05/19 20:04 Aspirin PO 325 mg HS [facility] Administration Famotidine 20 mg 04/05/19 09:00 04/05/19 13:17 Pepcid PO Not Given DAILY [facility] Isosorbide Mononitrate 30 mg 04/05/19 09:00 04/05/19 13:17 Imdur Er PO Not Given DAILY [facility] Levothyroxine Sodium 175 mcg 04/05/19 06:00 04/06/19 06:00 Synthroid PO 175 mcg 0600 [facility] Administration Rosuvastatin Calcium 20 mg 04/05/19 21:00 04/05/19 20:04 Crestor PO 20 mg HS [facility] Administration Sodium Chloride 0 ml 04/04/19 23:01 04/04/19 23:33 [place] Nasal [place] 0.65% EA NARE 2 spr TID PRN Administration Nasal Congestion - Exam Neck: negative: supple, symmetric, no JVD, no thyromegaly, no lymphadenopathy, no carotid bruit, JVD Heart: negative: RRR, no murmur, no gallops, no rubs, normal peripheral pulses, irregular, diminshed peripheral pulses, murmur present, II/IV, III/IV Respiratory: negative: CTAB, no wheezes, no rales, no ronchi, normal chest expansion, no tachypnea, normal percussion, rales, rhonchi, tachypneic, wheezes Gastrointestinal: negative: soft, non-tender, non-distended, normal bowel sounds , no palpable masses, no hepatomegaly, no splenomegaly, no bruit, no guarding, no rigidity, tender to palpation, distended, diminished bowl sounds, voluntary guarding Hosp A/P (1) Slurred speech Code(s): R47.81 - SLURRED SPEECH Status: Acute (2) DVT (deep venous thrombosis) Code(s): I82.409 - ACUTE EMBOLISM AND THOMBOS UNSP DEEP VN UNSP LOWER EXTREMITY Status: Acute (3) ESRD (end stage renal disease) on dialysis Code(s): N18.6 - END STAGE RENAL DISEASE; Z99.2 - DEPENDENCE ON RENAL DIALYSIS Status: Chronic (4) Hypertension Code(s): I10 - ESSENTIAL (PRIMARY) HYPERTENSION Status: Chronic (5) Hypothyroidism Code(s): E03.9 - HYPOTHYROIDISM, UNSPECIFIED Status: Chronic - Plan pt's lower ext doppler indicates dvt which appear chronic. I did ask the pt and he states that he has had this before and has been tx for and has been told no more AC. our staff called the primary care but the office was not sure about if this is a new vs old dvt. i will ask nephrology about this. He mentioned that he had slurred speech for couple days. He was recently started on lyrica and thought it was due to that. i initially ordered a MRi but he refused so will get a ct brain and stroke work up. He denied any sob and will get a viral swab.
--- NOTE | 2019-04-06 08:52 | PRG ---
DATE OF SERVICE: 04/06/2019 SUBJECTIVE: Mr. Cao is a 73-year-old male with ESRD on maintenance hemodialysis, who was initially admitted due to confusion as well as shortness of breath. The issues of confusion and shortness of breath are now resolved. He underwent a Doppler of the leg, which showed an old DVT - chronic changes. He tells me that he has had this before. It is not a new finding. No other complaints today except he is complaining of back pain. Morphine 2 mg subcutaneous will be given prior to dialysis. I have scheduled him for his regular dialysis today. OBJECTIVE: VITAL SIGNS: Blood pressure 186/98, heart rate 73, respiratory rate 18, temperature 98.8, and pulse ox 97%. GENERAL: The patient is awake, alert, comfortable, not in distress. SKIN: Adequate turgor. HEENT: He has a pinkish conjunctivae. Anicteric sclerae. NECK: No neck mass. No carotid bruits. No JVD. CHEST: No deformities. LUNGS: Clear breath sounds. HEART: Normal sinus rhythm. No murmurs, gallops, or rubs. ABDOMEN: Globular, soft, nontender. No masses. EXTREMITIES: No edema. No deformities of lower extremities. MEDICATIONS: Of April 06, 2019, was reviewed. LABORATORY DATA: Of April 05, 2019; white count 6.6, hemoglobin 11. April 06, 2019, glucose 101. April 05, 2019, potassium 3.7. ASSESSMENT AND PLAN: 1. End stage renal disease, stable. We will continue current hemodialysis regimen. I have scheduled him for Thursday, Thursday, and Thursday dialysis session. Fluid removal only as tolerated. 2. Hip joint back pain - morphine sulfate 2 mg subcutaneous will be given x1 dose. 3. Chronic deep venous thrombosis - chronic changes noted on ultrasound or Doppler of the leg. No indication for any active treatment or anticoagulation. 4. Shortness of breath, resolved. 5. Agree with current management. Job ID: [id number] MTDD
[2019-04-06] MEDS ORDERED: Morphine 4 MG/ML VIAL SLOW IVP SCH (11:30)
[2019-04-06] MEDS: Allopurinol 100 MG TAB PO SCH (13:01)
[2019-04-06] MEDS: Amlodipine 10 MG TAB PO SCH (13:01)
[2019-04-06] MEDS: Isosorbide Mononitrate (ER) 30 MG TAB PO SCH (13:02)
[2019-04-06] MEDS: Famotidine 20 MG TAB PO SCH (13:02)
[2019-04-06 13:19] VITALS: TEMP 98.2
[2019-04-06 13:55] VITALS: BP 166/82
--- NOTE | 2019-04-06 20:40 | DIS ---
DATE OF ADMISSION: 04/04/2019 DATE OF DISCHARGE: 04/06/2019 DISCHARGE DIAGNOSES: 1. Slurred speech, possible transient ischemic attack versus medication related. 2. End-stage renal disease, on dialysis. 3. Hypertension. 4. Chronic deep vein thrombosis. 5. Right back and hip pain. HOSPITAL COURSE: The patient is a 73-year-old male who initially presented to the hospital with slurred speech that had been going on for couple of days. The patient states that he recently was started on Lyrica and took a few doses of it and thought that most likely was related to the Lyrica. He denies any numbness or tingling anywhere. He denies any shortness of breath or chest pain. At this time, he did undergo a stroke workup. However, in the ED, it was mentioned to the ED doctor that he had shortness of breath from dialysis and at this time, he did undergo a CTA thorax, which was negative for PE and had an ultrasound that indicated a right lower extremity chronic DVT that was nonocclusive. I did try to call the PCP, however, there was no recollection of his previous Doppler that was known. The patient did state that about 10 to 15 years back, he did have a DVT on that leg and he was treated and that was it. I also spoke with his card fixer, Dr. Hernandez, discussed the case with this in regard to possible anticoagulate versus not. However, given the fact that this was a chronic nonocclusive DVT, we decided against anticoagulating the patient. The patient also agreed. He stated that this is an old DVT that he has had. He refused an MRI of the brain. We did a CT head and a carotid Doppler. CT head did not show any acute evidence of abnormalities. He did have carotid Dopplers, which were essentially normal. He did have an echocardiogram which was pending read. He is going to follow up with his shook splicer next week. DISCHARGE MEDICATIONS: Will be unchanged. 1. Meclizine 25 mg as needed. 2. Allopurinol 100 mg daily. 3. Norvasc 10 mg daily. 4. Aspirin 325 at bedtime. 5. Glimepiride 4 mg b.i.d. 6. Isosorbide 30 mg daily. 7. Levothyroxine 75 mcg daily. 8. Zestril 10 mg daily. 9. Crestor 20 mg at bedtime. PHYSICAL EXAMINATION: VITAL SIGNS: Temperature 98.2, pulse 74, respirations 20, 96% on room air, blood pressure . GENERAL: He is awake, alert, and oriented x3. Does not appear in any distress. CV: S1 and S2 present. No murmurs, rubs, or gallops. ABDOMEN: Soft, nontender. DISCUSSION: He will be discharged home. FOLLOWUP: Follow up with his primary and also he will follow up with his shook splicer for echo finding. Job ID: [id number]
== END 2019-04-06 15:52 | disposition home or self-care (01) ==
LOC: ERS 15:36 → 2SW 19:00 → 2SE 04-05 12:37
PROVIDERS: ADMIT Internal Medicine; ATTEND Internal Medicine
DX: R47.81 Slurred speech (principal); R06.02 Shortness of breath; R41.0 Disorientation, unspecified; I12.0 Hypertensive chronic kidney disease with stage 5 chronic kidney disease or end stage renal disease; E11.22 Type 2 diabetes mellitus with diabetic chronic kidney disease; N18.6 End stage renal disease; E78.5 Hyperlipidemia, unspecified; G89.29 Other chronic pain; M25.551 Pain in right hip; M25.512 Pain in left shoulder; E03.9 Hypothyroidism, unspecified; M10.9 Gout, unspecified; M19.90 Unspecified osteoarthritis, unspecified site; I82.511 Chronic embolism and thrombosis of right femoral vein; E66.9 Obesity, unspecified; Z68.38 Body mass index [BMI] 38.0-38.9, adult; Z79.82 Long term (current) use of aspirin; Z79.84 Long term (current) use of oral hypoglycemic drugs; Z79.899 Other long term (current) drug therapy; Z99.2 Dependence on renal dialysis
CPT/HCPCS: 70450; 71046; 71275; 80048; 80053; 80061; 82550; 82962 ×3; 83605; 83880; 84145; 84443; 84484 ×2; 85025 ×2; 85610; 85730; 87340; 87633; 87798 ×2; 93005; 93306; 93880; 93971; 94640; 94760; 96374; 96376; 97139 ×6; 99285; G0378 ×4; 36415; 36416; J1644; J2270; Q9967

== ENCOUNTER 2019-04-18 12:22 | Emergency (ER) | payer MEDICARE ==
--- NOTE | 2019-04-18 13:31 | RAD ---
RIGHT HIP 2 VIEWS: Date: 04/18/19 HISTORY: Right hip pain. FINDINGS/IMPRESSION: No fracture, dislocation, or other acute process. Mild degenerative and osteoarthrosis changes. POS: [facility]
[2019-04-18] MEDS ORDERED: Ketorolac Tromethamine 60 MG/2 ML VIAL ONE (13:39)
== END 2019-04-18 14:11 | disposition home or self-care (01) ==
LOC: ERS 12:22
DX: G89.29 Other chronic pain (principal); M25.551 Pain in right hip; E11.22 Type 2 diabetes mellitus with diabetic chronic kidney disease; N18.6 End stage renal disease; E78.5 Hyperlipidemia, unspecified; E78.00 Pure hypercholesterolemia, unspecified; I10 Essential (primary) hypertension
CPT/HCPCS: 36416; 96372; J1885

== ENCOUNTER 2024-09-10 14:24 | Inpatient (IN) | payer OTHER, MEDICARE ==
[2024-09-10 15:26] LABS: #Basophils Less than 0.03 10x3/uL (0.0-0.2); %Basophils 0.4 % (0.0-1.0); %Eosinophils 1.3 % (0.0-10.0); %Lymphocytes 12.4 % (21.0-51.0); %Monocytes 11.6 % (0.0-10.0); %Neutrophils 74.1 % (42.0-75.0); Hemoglobin 8.2 g/dL (14.0-18.0); Mean Corpuscular HGB CONC 31.5 g/dL (32.0-36.0); Mean Corpuscular Hemoglobin 34.3 pg (27.0-31.0); Mean Corpuscular Volume 108.8 fL (78.0-98.0); Platelet Count 75 10x3/uL (130-400); RBC Distribution Width 23.7 % (11.5-14.5); Red Blood Cell (RBC) Count 2.39 mill/uL (4.70-6.10)
[2024-09-10 15:51] LABS: ALT (SGPT) 8 U/L (Less than 45); AST (SGOT) 33 U/L (11-34); Albumin 2.1 g/dL (3.1-4.5); Alkaline Phosphatase 103 U/L (40-110); Anion Gap 18 mmol/L (10-20); BUN (Urea Nitrogen) 19 mg/dL (8.4-25.7); Bilirubin, Total 0.8 mg/dL (0.3-1.2); Calc. Creatinine Clearance 0 mL/min (70-130); Calcium 8.1 mg/dL (7.8-10.44); Carbon Dioxide 25 mmol/L (23-31); Chloride 94 mmol/L (98-107); Estimated GFR 10; Globulin 5.4 g/dL (2.4-3.5); Glucose 86 mg/dL (83-110); Potassium 3.8 mmol/L (3.5-5.1); Protein, Total 7.5 g/dL (5.8-8.1); Sodium 133 mmol/L (136-145)
[2024-09-10 15:54] LABS: Troponin I 0.156 ng/mL (< 0.028)
[2024-09-10 18:59] VITALS: BMI 33.9
[2024-09-10] MEDS ORDERED: Ondansetron PF 4 MG/2 ML Vial IVP PRN (19:09)
[2024-09-10] MEDS ORDERED: Dextrose 50% Abboject 50 ML SYRINGE SLOW IVP PRN (19:09)
[2024-09-10] MEDS ORDERED: Dextrose 5% in Water 1,000 ML IV PRN (19:09)
[2024-09-10] MEDS ORDERED: Ondansetron ODT 4 MG TAB PO PRN (19:09)
[2024-09-10] MEDS ORDERED: Insulin Lispro 100 UNIT/ML 10 ML VIAL SC PRN ×2 (19:09)
[2024-09-10] MEDS ORDERED: Calcium Carbonate 500 MG ChewTAB PO PRN (19:09)
[2024-09-10] MEDS ORDERED: Acetaminophen 650 MG Suppository PR PRN (19:09)
[2024-09-10] MEDS ORDERED: Glucagon 1 MG/ML KIT IM PRN (19:09)
[2024-09-10] MEDS: Midodrine HCl 5 MG TAB PO SCH (20:10)
[2024-09-10] MEDS ORDERED: Albumin 25% 25 GM (100 mL) BOT IVPB PRN (20:11)
[2024-09-10] MEDS ORDERED: Heparin 5,000 UNITS/ML VIAL SC SCH (21:00)
[2024-09-11] MEDS: Cephalexin 250 MG CAP PO SCH (00:22)
[2024-09-11] MEDS: Atorvastatin Calcium 40 MG TAB PO SCH (00:22)
[2024-09-11] MEDS: Sevelamer Carbonate 800 MG TAB PO SCH ×3 (00:22→09:17)
[2024-09-11] MEDS: Gabapentin 100 MG CAP PO SCH (00:23)
[2024-09-11] MEDS: Tamsulosin HCl 0.4 MG CAP PO SCH (00:23)
[2024-09-11] MEDS: guaiFENesin ER 600 MG TAB PO SCH ×2 (02:36→09:17)
[2024-09-11] MEDS: Levothyroxine 175 MCG TAB PO SCH (05:20)
[2024-09-11 05:48] LABS: #Basophils 0.03 10x3/uL (0.0-0.2); %Basophils 0.6 % (0.0-1.0); %Eosinophils 1.5 % (0.0-10.0); %Lymphocytes 16.9 % (21.0-51.0); %Monocytes 14.2 % (0.0-10.0); %Neutrophils 66.4 % (42.0-75.0); Hematocrit 28.8 % (42.0-52.0); Hemoglobin 8.9 g/dL (14.0-18.0); Mean Corpuscular HGB CONC 30.9 g/dL (32.0-36.0); Mean Corpuscular Volume 109.9 fL (78.0-98.0); Mean Platelet Volume 11.4 fL (7.4-10.4); Platelet Count 64 10x3/uL (130-400); RBC Distribution Width 24.1 % (11.5-14.5); Red Blood Cell (RBC) Count 2.62 mill/uL (4.70-6.10)
[2024-09-11 06:07] LABS: Anion Gap 16 mmol/L (10-20); BUN (Urea Nitrogen) 10 mg/dL (8.4-25.7); Calc. Creatinine Clearance 23 mL/min (70-130); Calcium 8.5 mg/dL (7.8-10.44); Carbon Dioxide 27 mmol/L (23-31); Chloride 96 mmol/L (98-107); Estimated GFR 16; Glucose 82 mg/dL (83-110); Potassium 3.9 mmol/L (3.5-5.1); Sodium 135 mmol/L (136-145)
[2024-09-11] MEDS: Folic Acid 1 MG TAB PO SCH (09:17)
[2024-09-11] MEDS: Lidocaine 4% Patch TP SCH (09:17)
[2024-09-11] MEDS: Clopidogrel Bisulfate 75 MG TAB PO SCH (09:17)
[2024-09-11] MEDS: Midodrine HCl 5 MG TAB PO SCH (09:17)
[2024-09-11] MEDS: Aspirin Chewable 81 MG TAB PO SCH (09:17)
[2024-09-11] MEDS: oxyCODONE 5 MG TAB PO PRN (13:06)
[2024-09-11] MEDS: Epoetin (ESRD) 10,000 UNITS/ML VIAL SC SCH (14:53)
[2024-09-11] MEDS: Melatonin 3 MG TAB PO PRN (20:33)
[2024-09-12] MEDS ORDERED: Heparin 10,000 UNITS/ 10 ML VIAL ONE (08:48)
[2024-09-12] MEDS: Senokot S 8.6-50 MG TAB PO PRN (14:17)
[2024-09-12] MEDS: Acetaminophen 325 MG TAB PO PRN (17:08)
[2024-09-12 22:29] LABS: Influenza A by NAA Not Detected (NotDetected); Influenza B by NAA Not Detected (NotDetected); SARS-CoV-2 NAA Rapid Test DETECTED (NotDetected)
[2024-09-13] MEDS: REMDESIVIR 200 MG in Sodium Chloride 0.9% 250 ML 210 ML IV SCH (01:30)
[2024-09-13] MEDS: Ascorbic Acid 500 mg Chewable Tablet PO SCH (10:16)
[2024-09-13] MEDS: Zinc Sulfate 220 MG CAP PO SCH (10:16)
[2024-09-13] MEDS: Cholecalciferol (Vitamin D3) 400 UNITS TAB PO SCH (10:16)
[2024-09-14] MEDS: REMDESIVIR 100 MG in Sodium Chloride 0.9% 250 ML 230 ML IV SCH (10:20)
[2024-09-14] MEDS: Albumin 25% 25 GM (100 mL) BOT IVPB PRN (14:43)
[2024-09-15 08:35] LABS: #Basophils Less than 0.03 10x3/uL (0.0-0.2); %Basophils 0.3 % (0.0-1.0); %Eosinophils 0.7 % (0.0-10.0); %Lymphocytes 16.8 % (21.0-51.0); %Monocytes 6.8 % (0.0-10.0); %Neutrophils 74.9 % (42.0-75.0); Hematocrit 29.7 % (42.0-52.0); Hemoglobin 9.2 g/dL (14.0-18.0); Mean Corpuscular Hemoglobin 34.1 pg (27.0-31.0); Mean Platelet Volume 11.4 fL (7.4-10.4); Platelet Count 43 10x3/uL (130-400); RBC Distribution Width 23.3 % (11.5-14.5)
[2024-09-15 08:37] LABS: Anion Gap 15 mmol/L (10-20); BUN (Urea Nitrogen) 22 mg/dL (8.4-25.7); Calc. Creatinine Clearance 20 mL/min (70-130); Calcium 8.6 mg/dL (7.8-10.44); Carbon Dioxide 28 mmol/L (23-31); Chloride 95 mmol/L (98-107); Estimated GFR 13; Glucose 92 mg/dL (83-110); Potassium 3.8 mmol/L (3.5-5.1); Sodium 134 mmol/L (136-145)
[2024-09-15] MEDS: GUAIFENESIN SF SOLN 200 MG/10 ML UDCUP PO PRN (18:35)
[2024-09-16 04:51] LABS: #Basophils Less than 0.03 10x3/uL (0.0-0.2); %Basophils 0.1 % (0.0-1.0); %Eosinophils 0.6 % (0.0-10.0); %Lymphocytes 16.1 % (21.0-51.0); %Neutrophils 75.9 % (42.0-75.0); Hematocrit 26.7 % (42.0-52.0); Hemoglobin 8.5 g/dL (14.0-18.0); Mean Corpuscular HGB CONC 31.8 g/dL (32.0-36.0); Mean Corpuscular Hemoglobin 34.4 pg (27.0-31.0); Mean Corpuscular Volume 108.1 fL (78.0-98.0); Mean Platelet Volume 10.9 fL (7.4-10.4); Platelet Count 43 10x3/uL (130-400); RBC Distribution Width 22.5 % (11.5-14.5); Red Blood Cell (RBC) Count 2.47 mill/uL (4.70-6.10)
[2024-09-16 05:05] LABS: Anion Gap 17 mmol/L (10-20); BUN (Urea Nitrogen) 27 mg/dL (8.4-25.7); Calc. Creatinine Clearance 18 mL/min (70-130); Calcium 8.5 mg/dL (7.8-10.44); Carbon Dioxide 25 mmol/L (23-31); Chloride 94 mmol/L (98-107); Estimated GFR 11; Glucose 79 mg/dL (83-110); Potassium 3.6 mmol/L (3.5-5.1); Sodium 132 mmol/L (136-145)
[2024-09-16] MEDS: Albumin 25% 25 GM (100 mL) BOT IVPB SCH (09:48)
[2024-09-16 11:35] VITALS: BP 111/64; TEMP 97.6
== END 2024-09-16 15:48 | disposition home health service (06) | DRG 177 ==
LOC: ERS 14:24 → 2NO 17:24 → OBSVTOIN 09-11 14:26
PROVIDERS: ADMIT Family Medicine; ATTEND Internal Medicine
PROC: XW033E5 Introduction of Remdesivir Anti-infective into Peripheral Vein, Percutaneous Approach, New Technology Group 5 (ICD-10-PCS; principal; 2024-09-11)
PROC: 8E0ZXY6 Isolation (ICD-10-PCS; 2024-09-11)
PROC: 30233J1 Transfusion of Nonautologous Serum Albumin into Peripheral Vein, Percutaneous Approach (ICD-10-PCS; 2024-09-14)
DX: U07.1 COVID-19 (principal); I50.33 Acute on chronic diastolic (congestive) heart failure; J96.01 Acute respiratory failure with hypoxia; N18.6 End stage renal disease; I13.2 Hypertensive heart and chronic kidney disease with heart failure and with stage 5 chronic kidney disease, or end stage renal disease; L03.116 Cellulitis of left lower limb; M86.8X7 Other osteomyelitis, ankle and foot; Z66 Do not resuscitate; E78.5 Hyperlipidemia, unspecified; I25.10 Atherosclerotic heart disease of native coronary artery without angina pectoris; E11.22 Type 2 diabetes mellitus with diabetic chronic kidney disease; D63.1 Anemia in chronic kidney disease; E03.9 Hypothyroidism, unspecified; R53.1 Weakness; M19.90 Unspecified osteoarthritis, unspecified site; Z99.2 Dependence on renal dialysis; Z98.890 Other specified postprocedural states; Z99.81 Dependence on supplemental oxygen; E11.69 Type 2 diabetes mellitus with other specified complication; T81.89XA Other complications of procedures, not elsewhere classified, initial encounter; I95.9 Hypotension, unspecified
CPT/HCPCS: 36415; 36416; 71045; 80048; 80053; 83880; 84484; 85025; 93005; 97139; J0248; J1644; J7050; P9047; Q4081